=== PATIENT | female | born 1945 | race Caucasian/White ===

== ENCOUNTER 2016-10-24 14:52 | Inpatient (IN) ==
--- OUTSIDE RECORDS SUMMARY | 2016-10-24 15:13 | External Medical Summary | Continuity of Care Document ---
:[address] [facility] Allergies Medications Problems Date Dx Coded Attending Type Code Diagnosis Diagnosed By 04/24/2014 Fernando PINEDA, Maurilio Dangelo [address] [employer] NEC Procedures Results Test Result Range ARTERIAL BLOOD GAS - 04/24/14 13:38 ABG BASE EXCESS 12.5 meq/L -3.0-3.0 ABG DEVICE NC ABG BICARBONATE 40.0 meq/L 23.0-28.0 ABG PCO2 67 mm Hg 34-45 ABG PH 7.40 7.35-7.45 ABG PO2 61 mm Hg 75-100 ABG VENT RATE 2 ABG O2 SATURATION 92 % 93-100 ABG SITE LT RADIAL Encounters ACCT Visit Discharge Status Pt. Type Provider Facility Loc./Unit Complaint No. Date/Time [id number] 04/24/2014 04/24/2014 DIS Outpatient Fernando Menchaca [id number] 13:28:00 13:28:00 , Maurilio Duffy [facility]
--- OUTSIDE RECORDS SUMMARY | 2016-10-24 16:19 | External Medical Summary | Continuity of Care Document ---
:1945 Author Organization [facility] Allergies Medications Problems Date Dx Coded Attending [...] Type Provider Facility Loc./Unit Complaint No. Date/Time [id number] 04/24/2014 04/24/2014 DIS Outpatient Fernando Menchaca [id number] 13:28:00 13:28:00 , Maurilio Duffy [facility]
[2016-10-24] MEDS ORDERED: LORazepam 0.5 MG TABLET PO PRN ×3 (17:45→18:14)
[2016-10-24] MEDS ORDERED: HALOPERIDOL 5 MG/ML INJECTION IM PRN (17:45)
[2016-10-24] MEDS ORDERED: HALOPERIDOL 0.5 MG TABLET PO PRN (17:45)
[2016-10-24] MEDS ORDERED: MENTHOL COUGH DROPS (RICOLA) MM PRN (18:14)
[2016-10-24] MEDS ORDERED: LOPERAMIDE 2 MG CAPSULE PO PRN (18:14)
[2016-10-24] MEDS: DULOXETINE 30 MG CAPSULE PO SCH (21:40)
[2016-10-24] MEDS: ClonazePAM 0.5 MG TABLET PO SCH (21:40)
[2016-10-24] MEDS: ATORVASTATIN 20 MG TABLET PO SCH (21:40)
[2016-10-24] MEDS: AMANTADINE 100 MG CAPSULE PO SCH (21:40)
[2016-10-24] MEDS: BUMETANIDE 1 MG TABLET PO SCH (22:41)
[2016-10-24] MEDS: TAMSULOSIN 0.4 MG CAPSULE PO SCH (22:42)
[2016-10-24] MEDS: ACETAMINOPHEN 325 MG TABLET PO PRN (22:49)
[2016-10-25] MEDS: ISOSORBIDE MONONITRATE ER 60 MG TABLET PO SCH ×2 (05:57→17:13)
[2016-10-25] MEDS: DICYCLOMINE 10mg CAPSULE PO SCH ×3 (05:57→17:13)
[2016-10-25] MEDS: LACTAID FAST TABLET PO SCH ×3 (08:01→17:13)
[2016-10-25] MEDS: DULOXETINE 30 MG CAPSULE PO SCH (08:01)
[2016-10-25] MEDS: LORATADINE 10 MG TABLET PO SCH (08:01)
[2016-10-25] MEDS: BUMETANIDE 1 MG TABLET PO SCH ×2 (08:01→17:13)
[2016-10-25] MEDS: AMANTADINE 100 MG CAPSULE PO SCH ×2 (08:03→21:19)
[2016-10-25] MEDS: ClonazePAM 0.5 MG TABLET PO SCH ×3 (08:03→21:19)
[2016-10-25] MEDS ORDERED: LOSARTAN 100 MG TABLET PO SCH (09:00)
[2016-10-25] MEDS: LOSARTAN 100 MG TABLET PO SCH (10:21)
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
--- NOTE | 2016-10-25 16:10 | History & Physical Report ---
<Keri Vazquez - Last Filed: 10/25/16 15:53> History of Present Illness Date: 10/25/16 Chief complaint: schizoaffective disorder, suicidal ideation HPI: Kaila Stevenson is a 71-year-old female who is a assisted resident at [facility]. She has a known history of anxiety and schizophrenia and known diastolic heart failure, chronic respiratory failure related to COPD and LYLE. It was reported that on 10/23, she approached staff at the facility and asked them to wrap up her wrists. Upon further evaluation of her wrists, it was noted that she had multiple superficial linear abrasions. It was then that she admitted to having suicidal ideations for the past 3-4 days and tried to commit suicide by cutting her wrists with a soda bottle cap on 10/22. She states that she is depressed and that the "pain of living" was too much to bear. She cannot identify any particular stressor and admits to having thoughts of harming herself since last month. In addition to cutting her wrists, she also tried to harm herself by not wearing her oxygen, but got very tired and put her oxygen on to sleep. She has a history of prior suidice attempts with the most recent being 3 years ago when she tried to hang herself but was unable to complete it. She was was brought by EMS to [facility] on 10/23 for further evaluation and psychiatric evaluation. Labs were obtained and revealed thrombocytopenia with platelets at 76 and mild hypokalemia with potassium at 3.5. Due to the severity of her attempts, she was accepted to [facility] unit for further evaluation and psychiatric treatment. The hospitalist service was consulted for medical management. On exam, she is seen while sitting in the day room. She has a pleasant and cheerful disposition and is cooperative on exam. Is is a bit evasive with questions pertaining to events prior to her admission and just states that she is "better now". She denies any current SI or HI. No recent illness, fevers, chills, chest pain, increased shortness of breath, abdominal pain, nausea, vomiting or dysuria. She admits to chronic incontinence. Review of Systems All systems: reviewed and no additional remarkable complaints except as stated - Constitutional Constitutional: Absent: anorexia, chills, fatigue, fever(s), weakness - EENMT Eyes: Absent: blurry vision, change in vision, diplopia Nose: Present: allergies Mouth/Throat: Absent: sore throat - Cardiovascular Cardiovascular: Present: dyspnea on exertion, orthopnea. Absent: chest pain, palpitations, syncope Vascular: Present: pedal edema - Respiratory Respiratory: Present: dyspnea, dyspnea on exertion. Absent: cough, wheezing - Gastrointestinal Gastrointestinal: Absent: abdominal pain, change in bowel habits, diarrhea, nausea, vomiting - Genitourinary Genitourinary: Absent: dysuria, hematuria - Musculoskeletal Musculoskeletal: Absent: back pain, deformity - Integumentary/Breasts Integumentary: Present: other (linear abrasions to wrists.). Absent: rash, swelling - Neurological Neurological: Absent: convulsions, dizziness, focal weakness, tremor(s) - Psychiatric Psychiatric: Present: as per HPI, abnormal sleep pattern, anxiety, behavioral changes, depression, difficulty concentrating, hallucinations, hopelessness, mood swings, paranoia, suicidal ideation - Endocrine Endocrine: Absent: polyphagia, polyuria - Allergic/Immunologic Allergic/Immunologic: Present: seasonal rhinorrhea PFSH Patient Stated Medical History Coronary Artery Disease Yes Hypertension Yes Myocardial Infarction Yes Chronic Obstructive Pulmonary Yes Disease (COPD) Sleep Apnea Yes Diabetes Mellitus Type 2 Yes Other GI Yes: IBS Hx Incontinence Yes Schizophrenia Yes Other Reproductive Yes: hysterectomy Surgical History: CABG, CARPAL TUNNEL DECOMPRESSION, HYSTERECTOMY Family History Updates: Denies psychiatric history of depression, suicide attempts or suicide with family. - Social History Smoking status: Former smoker Quit date: 05/15/96 Substance use type: does not use Alcohol intake frequency: does not drink Housing: assisted [facility] Medications Home Medications Medication Instructions Recorded Confirmed Type Amantadine HCl [Amantadine] 100 mg PO BID 10/24/16 10/24/16 History Atorvastatin Calcium 20 mg PO HS 10/24/16 10/24/16 History Bumetanide Tab [Bumex] 2 mg PO TID 10/24/16 10/24/16 History ClonazePAM [Klonopin] 0.5 mg PO TID 10/24/16 10/24/16 History Dicyclomine HCl 10 mg PO TID 10/24/16 10/24/16 History Duloxetine HCl 30 mg PO BID 10/24/16 10/24/16 History Elma 7 mg PO Q2H PRN 10/24/16 10/24/16 History Isosorbide Mononitrate ER [Imdur] 60 mg PO BID 10/24/16 10/24/16 History LORazepam [Ativan] 0.5 mg PO DAILY PRN 10/24/16 10/24/16 History LORazepam [Ativan] 0.5 mg PO Q4H PRN 10/24/16 10/24/16 History Lactase [Dairy Relief] 3,000 unit PO 10/24/16 History Loperamide HCl [Loperamide] 2 mg PO 10/24/16 History Loratadine [Claritin] 10 mg PO DAILY 10/24/16 10/24/16 History Losartan [Cozaar] 100 mg PO DAILY 10/24/16 10/24/16 History Potassium Chloride [Klor-Con] 20 meq 10/24/16 History RisperiDONE LA [RisperDAL Consta] 50 mg IM Q2WKS 10/24/16 10/24/16 History Tamsulosin HCl 0.4 mg PO HS 10/24/16 10/24/16 History Acetaminophen [Acetaminophen Extra 1,000 mg PO Q4H PRN 10/25/16 10/25/16 History Strength] Baclofen [Lioresal] 5 mg PO Q8H PRN 10/25/16 10/25/16 History Melatonin/Pyridoxine HCl (B6) 6 mg PO HS PRN 10/25/16 10/25/16 History [Melatonin 3 mg Tablet] Nitroglycerin 0.4 mg SL 10/25/16 History Ondansetron [Zofran Odt] 4 mg PO Q6HR PRN 10/25/16 10/25/16 History Pseudoephedrine HCl [Sudafed] 30 mg PO BID PRN 10/25/16 10/25/16 History Simethicone [Mylicon] 80 mg PO PRN PRN 10/25/16 10/25/16 History Sodium Chloride [Saline Nasal Mist] 2 spray NS PRN PRN 10/25/16 10/25/16 History Allergies Allergy/AdvReac Type Severity Reaction Status Date / Time codeine Allergy Verified 10/24/16 16:27 cortisone Allergy Verified 10/24/16 16:27 Exam Vital Signs: Temp Pulse Resp BP Pulse Ox 97.0 F 88 18 122/65 93 10/25/16 08:00 06/13/17 10:21 10/25/16 08:00 10/25/16 10:21 10/25/16 08:00 Height: 5 ft 5 in Weight: 136.2 kg Body Mass Index: 49.9 - Constitutional Present: no acute distress, well nourished, well developed, morbidly obese, cooperative - Routine HEENT Exam Head: Present: normocephalic, atraumatic Eye: Present: PERRL. Absent: conjunctival icterus, scleral injection ENT: Present: mucous membranes moist - Routine Neck Exam Present: supple, full ROM, trachea midline - Routine Chest/Breast/Axilla Exam Chest wall: Absent: tenderness - Routine Respiratory Exam Present: decreased breath sounds, CTA bilaterally. Absent: accessory muscle use - Routine Cardiovascular Exam Present: RRR, S1, S2 - Routine Abdominal Exam Present: soft, normoactive bowel sounds, non distended, non tender. Absent: rebound, guarding - Routine Extremities Exam Present: edema (trace). Absent: cyanosis Comments: wheelchair bound - Routine Back/Spine/Pelvis Exam Back/Spine: Absent: CVA tenderness - Routine Skin Exam Present: dry, warm, wounds (abrasions to wrist). Absent: erythema - Routine Neurological Exam Present: alert, oriented X3, vision grossly intact, normal speech. Absent: facial asymmetry - Routine Psychiatric Exam Present: normal affect, normal thought process, cooperative. Absent: suicidal ideation, homicidal ideation, auditory hallucinations, visual hallucinations, tactile hallucinations Assessment and Plan (1) Schizophrenia Current visit: Yes Status: Acute (2) Generalized anxiety disorder Current visit: Yes Status: Chronic (3) COPD (chronic obstructive pulmonary disease) Current visit: Yes Status: Chronic (4) Diastolic heart failure Current visit: Yes Status: Chronic (5) CAD (coronary artery disease) Current visit: Yes Status: Chronic (6) Hypertension Current visit: Yes Status: Chronic (7) Diabetes Current visit: Yes Status: Chronic (8) IBS (irritable bowel syndrome) Current visit: Yes Status: Chronic (9) Hyperlipidemia Current visit: Yes Status: Chronic (10) Morbid obesity with BMI of 50.0-59.9, adult Current visit: Yes Status: Chronic (11) Urge urinary incontinence Current visit: Yes Status: Chronic (12) Oxygen dependent Current visit: Yes Status: Acute Assessment and Plan: . Schizophrenia with behavioral disturbance. * Agree with admission to [facility] for psychiatric evaluation and treatment. * Provide safe and supportive environment and encourage participation in floor activities. * Obtain admission work up including lipid panel, A1c, etc. Results pending. . NAEL. * Ativan and Cymbalta as directed by [facility] team. . COPD with oxygen dependence. * Continuous oxygen at 2-3L to maintain SAO2 >90%. . Diastolic heart failure. * Monitor closely for fluid overload. * Continue home bumex. . Hypertension and CAD with history of prior MT. * Continue home medications including Losartan. * Monitor blood pressure closely. . DM Type 2. * Check A1c as part of admission workup. Results pending. * Carb controlled diet. * Monitor blood sugars in AM and HS. . IBS. * Continue home Bentyl. . Hyperlipidemia. * Continue home atorvastatin. . Morbid obesity. . Urge urinary incontinence. Upon discharge, patient's care will be returned to her PCP. Sepsis Assessment - Evaluation Sepsis screening result: No Definite Risk - Focused Exam Vital Signs Temp Pulse Resp BP Pulse Ox 10/25/16 10:21 88 122/65 10/25/16 08:00 97.0 F 88 18 122/65 93 Hospital Course Summary Disclaimer: The visit summary below is not to be considered part of the above Progress Note. Hospital Course: 10/25/16 16:26 . Schizophrenia with behavioral disturbance. * Agree with admission to [facility] for psychiatric evaluation and treatment. * Provide safe and supportive environment and encourage participation in floor activities. * Obtain admission work up including lipid panel, A1c, etc. Results pending. . NAEL. * Ativan and Cymbalta as directed by [facility] team. . COPD with oxygen dependence. * Continuous oxygen at 2-3L to maintain SAO2 >90%. . Diastolic heart failure. * Monitor closely for fluid overload. * Continue home bumex. . Hypertension and CAD with history of prior MT. * Continue home medications including Losartan. * Monitor blood pressure closely. . DM Type 2. * Check A1c as part of admission workup. Results pending. * Carb controlled diet. * Monitor blood sugars in AM and HS. . IBS. * Continue home Bentyl. . Hyperlipidemia. * Continue home atorvastatin. . Morbid obesity. . Urge urinary incontinence. Upon discharge, patient's care will be returned to her PCP. <Muriel Cheng - Last Filed: 10/25/16 20:27> History of Present Illness Date: 10/25/16 [facility] Patient Stated Medical History Coronary Artery Disease Yes Hypertension Yes Myocardial Infarction Yes Chronic Obstructive Pulmonary Yes Disease (COPD) Sleep Apnea Yes Diabetes Mellitus Type 2 Yes Other GI Yes: IBS Hx Incontinence Yes Schizophrenia Yes Other Reproductive Yes: hysterectomy Exam Vital Signs: Temp Pulse Resp BP Pulse Ox 97.0 F 79 18 115/65 96 10/25/16 16:00 10/25/16 16:00 10/25/16 16:00 10/25/16 16:00 10/25/16 16:00 Height: 1.65 m Weight: 136.2 kg Assessment and Plan (1) Schizophrenia Current visit: Yes Status: Acute (2) Generalized anxiety disorder Current visit: Yes Status: Chronic (3) COPD (chronic obstructive pulmonary disease) Current visit: Yes Status: Chronic (4) Diastolic heart failure Current visit: Yes Status: Chronic (5) CAD (coronary artery disease) Current visit: Yes Status: Chronic (6) Hypertension Current visit: Yes Status: Chronic (7) Diabetes Current visit: Yes Status: Chronic (8) IBS (irritable bowel syndrome) Current visit: Yes Status: Chronic (9) Hyperlipidemia Current visit: Yes Status: Chronic (10) Morbid obesity with BMI of 50.0-59.9, adult Current visit: Yes Status: Chronic (11) Urge urinary incontinence Current visit: Yes Status: Chronic (12) Oxygen dependent Current visit: Yes Status: Acute (13) Thrombocytopenia Current visit: Yes Status: Chronic 10/25/16 20:23 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 Unknown recent baseline. Recheck CBC in the next 1-2 days. Assessment and Plan: 10/25/2016-I reviewed this chart, the patient history, and the QUART[employer] MOUNTER's/PA's documented findings as above. We discussed and formulated the assessment and plan as above with the additions below.-Dr. Cheng I saw the patient independently of my physician assistant professor of music. The patient was seen in the day room accompanied by her daughter. The patient states she is feeling okay. She currently denies any shortness of breath. She is on chronic O2 at 2-3 L per nasal cannula. She states she does not use inhalers or nebulizer medication because it makes her cough. She states she does not take aspirin for coronary artery disease because of a history of thrombocytopenia which was autoimmune in nature. Current platelets are 76. She denies any bleeding difficulties. The patient had some right upper back pain earlier today but it is gone now. She has chronic left knee pain from osteoarthritis. She denies any chest pain or abdominal pain. She denies headache. She denies any nausea or vomiting. She denies any urinary problems. On exam she is alert and in no acute distress. HEENT reveals sclerae to be anicteric and pupils are equal. Oropharynx is moist. Neck is supple. Chest is clear to auscultation. Cardiovascular reveals a regular rate and rhythm. Abdomen is soft, obese, nontender and nondistended with positive bowel sounds. Extremities reveal +1-2 bilateral pedal edema which the patient states is at baseline. The patient denies history of diabetes. Continue with current medications. Check CBC in the next 1-2 days. Sepsis Assessment - Focused Exam Vital Signs Temp Pulse Resp BP Pulse Ox 10/25/16 16:00 97.0 F 79 18 115/65 96 10/25/16 10:21 88 122/65 Hospital Course Summary Disclaimer: The visit summary below is not to be considered part of the above Progress Note.
[2016-10-25] MEDS: ATORVASTATIN 20 MG TABLET PO SCH (21:19)
[2016-10-25] MEDS: DULOXETINE 60 MG CAPSULE PO SCH (21:19)
[2016-10-25] MEDS: TAMSULOSIN 0.4 MG CAPSULE PO SCH (21:20)
[2016-10-26] MEDS: ISOSORBIDE MONONITRATE ER 60 MG TABLET PO SCH ×2 (06:21→17:23)
[2016-10-26] MEDS: DICYCLOMINE 10mg CAPSULE PO SCH ×3 (06:22→17:23)
[2016-10-26] MEDS: ClonazePAM 0.5 MG TABLET PO SCH ×3 (09:07→21:36)
[2016-10-26] MEDS: LACTAID FAST TABLET PO SCH ×3 (09:07→17:22)
[2016-10-26] MEDS: AMANTADINE 100 MG CAPSULE PO SCH ×2 (09:07→21:36)
[2016-10-26] MEDS: BUMETANIDE 1 MG TABLET PO SCH ×3 (09:07→15:42)
[2016-10-26] MEDS: DULOXETINE 60 MG CAPSULE PO SCH ×2 (09:07→21:36)
[2016-10-26] MEDS: LORATADINE 10 MG TABLET PO SCH (09:07)
[2016-10-26] MEDS: LOSARTAN 100 MG TABLET PO SCH (09:08)
[2016-10-26] MEDS: CYANOCOBALAMIN (B-12) 500mcg TABLET PO SCH (12:36)
[2016-10-26] MEDS: ATORVASTATIN 20 MG TABLET PO SCH (21:36)
[2016-10-26] MEDS: TAMSULOSIN 0.4 MG CAPSULE PO SCH (21:38)
--- NOTE | 2016-10-26 22:10 | Neuropsych Progress Note ---
[facility] Subjective Date: 10/27/16 - Sujective/Severity of Illness Medications: Acetaminophen (Tylenol) 325 - 650 mg PO Q5H PRN PRN Reason: Discomfort Last Admin: 10/24/16 22:49 Dose: 650 mg Amantadine HCl (Symmetrel) 100 mg PO BID [facility] Last Admin: 10/26/16 21:36 Dose: 100 mg Atorvastatin Calcium (Lipitor) 20 mg PO HS [facility] Last Admin: 10/26/16 21:36 Dose: 20 mg Bumetanide (Bumex) 2 mg PO 0800,1200,1600 [facility] Last Admin: 10/26/16 15:42 Dose: 2 mg Clonazepam (Klonopin) 0.5 mg PO TID [facility] Last Admin: 10/26/16 21:36 Dose: 0.5 mg Cyanocobalamin (Vit B-12) 1,000 mcg PO DAILY [facility] Last Admin: 10/26/16 12:36 Dose: 1,000 mcg Dicyclomine HCl (Bentyl) 10 mg PO AC [facility] Last Admin: 10/26/16 17:23 Dose: 10 mg Duloxetine HCl (Cymbalta) 60 mg PO BID [facility] Last Admin: 10/26/16 21:36 Dose: 60 mg Haloperidol (Haldol) 0.5 mg PO Q6H PRN PRN Reason: Extreme agitation Haloperidol Lactate (Haldol) 0.5 mg IM Q6H PRN PRN Reason: Extreme agitation Isosorbide Mononitrate (Imdur) 60 mg PO ACBID [facility] Last Admin: 10/26/16 17:23 Dose: 60 mg Lactase (Lactaid Fast Act) 1 tab PO WM [facility] Last Admin: 10/26/16 17:22 Dose: 1 tab Loperamide HCl (Imodium) 2 mg PO Q4H PRN PRN Reason: Protocol Loratadine (Claritin) 10 mg PO DAILY [facility] Last Admin: 10/26/16 09:07 Dose: 10 mg Lorazepam (Ativan) 0.5 mg PO Q6H PRN PRN Reason: Extreme agitation Lorazepam (Ativan Inj) 0.5 mg IM Q6H PRN PRN Reason: Extreme agitation Lorazepam (Ativan) 0.5 mg PO Q4H PRN PRN Reason: Anxiety Losartan Potassium (Cozaar) 100 mg PO DAILY [facility] Menthol (Ricola Sf) 1 lozenge MM Q2H PRN PRN Reason: Cough Potassium Chloride (K-Dur) 20 meq PO BIDWM [facility] Last Admin: 10/26/16 17:23 Dose: 20 meq Risperidone (Risperdal Consta) 50 mg IM Q2WKS [facility] Tamsulosin HCl (Flomax) 0.4 mg PO HS [facility] Last Admin: 10/26/16 21:38 Dose: Not Given Subjective: Patient seen and chart reviewed. Case discussed with treatment team. On interview, patient in dayroom with staff/peers and is very pleasant on interview. She reports that her mood is "good" and denies any SI since Monday. She thinks "opening up, talking and sharing" has been helpful in this regard. She does complain of some back pain and we discussed how increased dose of Cymbalta may help with this. Patient denies HI or AVH. Patient denies any adverse side effects related to psychotropic medications. Nursing staff report patient has been pleasant/cooperative, social and interacting well with others on the unit. Patient slept 7.75 hours overnight. VSS. Patient is eating well. Psychotropic PRNs required in the past 24 hours: none. Start Time: 18:00 Stop Time: 18:20 Mental Status Exam Vitals: Last Vital Signs Temp 97.2 F 10/26/16 20:50 Pulse 87 10/26/16 20:50 Resp 18 10/26/16 20:50 BP 141/74 H 10/26/16 20:50 Pulse Ox 2 L 10/26/16 21:18 Height: 1.65 m Weight: 136.2 kg - Mental Status Exam Muscle Strength/Tone: Normal Dressing: Casual Grooming: Fair Attitude: Cooperative Motor Activity: Normal Eye Contact: Fair Speech: Slowed Volume: Soft Rhythm: Appropriate Rhythm Orientation: Oriented X4 Mood: Other (improved from admission, neutral) Rate of Thoughts: Appropriate Rate, Delayed Thought Organization: Organized Associations: Intact Thought Content: Ruminations, Helplessness, Worthlessness, Somatic Concerns Perception/Psychotic: Hx psychosis, not current Language: Naming Intact Fund of Knowledge: Basil aware current events Memory: Grossly Intact Suicidal Ideation: Intermittent Homicidal Ideation: Denies Insight: Limited Judgement: Limited Impulse Control: Poor - Laboratory Result Diagrams: 10/26/16 04:48 10/26/16 04:48 Laboratory Results - last 24 hr 10/24/16 10/26/16 10/26/16 18:43 04:48 04:48 WBC 6.5 RBC 4.46 Hgb 12.3 Hct 39.6 MCV 88.8 MCH 27.6 MCHC 31.1 RDW Std Deviation 45.4 Plt Count 88 L MPV 11.8 Immature Gran % (Auto) 0.5 Neut % (Auto) 74.0 H Lymph % (Auto) 18.6 L [place] % (Auto) 5.2 Eos % (Auto) 1.4 Baso % (Auto) 0.3 Neut # 4.8 Lymph # 1.2 [place] # 0.3 Eos # 0.1 Baso # 0.0 Abs Immat Gran (auto) 0.03 Turbidity < 20 Sodium 148 H Potassium 4.2 Chloride 98 Carbon Dioxide 34 H Anion Gap 16 H BUN 14.0 Creatinine 0.8 GFR Calculation 71 BUN/Creatinine Ratio 18 Glucose 107 Calculated Osmolality 285 H Calcium 9.7 Icterus Index < 2 Specimen Hemolysis 35 H Ur Collection Type Urine Color Urine Clarity Urine pH Ur Specific [place] Urine Protein Urine Glucose (UA) Urine Ketones Urine Occult Blood Urine Nitrate Urine Bilirubin Urine Urobilinogen Ur Leukocyte Esterase Urinalysis Comment RPR Non-reactive 10/26/16 11:25 WBC RBC Hgb Hct MCV MCH MCHC RDW Std Deviation Plt Count MPV Immature Gran % (Auto) Neut % (Auto) Lymph % (Auto) [place] % (Auto) Eos % (Auto) Baso % (Auto) Neut # Lymph # [place] # Eos # Baso # Abs Immat Gran (auto) Turbidity Sodium Potassium Chloride Carbon Dioxide Anion Gap BUN Creatinine GFR Calculation BUN/Creatinine Ratio Glucose Calculated Osmolality Calcium Icterus Index Specimen Hemolysis Ur Collection Type Urine, clean catch Urine Color Yellow Urine Clarity Clear Urine pH 6.0 Ur Specific [place] <=1.005 L Urine Protein Negative Urine Glucose (UA) Negative Urine Ketones Negative Urine Occult Blood Negative Urine Nitrate Negative Urine Bilirubin Negative Urine Urobilinogen 0.2 Ur Leukocyte Esterase Negative Urinalysis Comment Microscopic not ind. RPR Assessment and Plan (1) Schizophrenia Problem details: by history Current visit: Yes Status: Chronic (2) Generalized anxiety disorder Problem details: by history Current visit: Yes Status: Chronic (3) Oxygen dependent Current visit: Yes Status: Acute (4) COPD (chronic obstructive pulmonary disease) Current visit: Yes Status: Chronic (5) Diabetes Current visit: Yes Status: Chronic (6) Diastolic heart failure Current visit: Yes Status: Chronic (7) Hyperlipidemia Current visit: Yes Status: Chronic (8) Hypertension Current visit: Yes Status: Chronic (9) Morbid obesity with BMI of 50.0-59.9, adult Current visit: Yes Status: Chronic (10) Thrombocytopenia Current visit: Yes Status: Chronic (11) Urge urinary incontinence Current visit: Yes Status: Chronic Continue current medications - Risperdal 50mg IM given day of admission, Cymbalta increased to a total of 120mg daily which will help with pain control. Focus on developing coping skills, building distress tolerance. Continue to monitor patient's mood, behavior and response to treatment.
[2016-10-27] MEDS: ISOSORBIDE MONONITRATE ER 60 MG TABLET PO SCH ×2 (06:46→17:05)
[2016-10-27] MEDS: DICYCLOMINE 10mg CAPSULE PO SCH ×3 (06:46→17:05)
[2016-10-27] MEDS: BUMETANIDE 1 MG TABLET PO SCH ×3 (09:20→15:39)
[2016-10-27] MEDS: LORATADINE 10 MG TABLET PO SCH (09:21)
[2016-10-27] MEDS: DULOXETINE 60 MG CAPSULE PO SCH ×2 (09:22→20:39)
[2016-10-27] MEDS: ClonazePAM 0.5 MG TABLET PO SCH ×3 (09:22→20:40)
[2016-10-27] MEDS: AMANTADINE 100 MG CAPSULE PO SCH ×2 (09:22→20:40)
[2016-10-27] MEDS: CYANOCOBALAMIN (B-12) 500mcg TABLET PO SCH (09:23)
[2016-10-27] MEDS: LACTAID FAST TABLET PO SCH ×3 (09:24→17:05)
[2016-10-27] MEDS: LOSARTAN 100 MG TABLET PO SCH (09:24)
[2016-10-27] MEDS: ACETAMINOPHEN 325 MG TABLET PO PRN (18:22)
[2016-10-27] MEDS: TAMSULOSIN 0.4 MG CAPSULE PO SCH (21:32)
[2016-10-27] MEDS: ATORVASTATIN 20 MG TABLET PO SCH (21:32)
--- NOTE | 2016-10-27 21:44 | Neuropsych Progress Note ---
[facility] Subjective Date: 10/27/16 - Sujective/Severity of Illness Medications: Acetaminophen (Tylenol) 325 - 650 mg PO Q5H PRN PRN Reason: Discomfort Last Admin: 10/27/16 18:22 Dose: 650 mg Amantadine HCl (Symmetrel) 100 mg PO BID [facility] Last Admin: 10/27/16 20:40 Dose: 100 mg Atorvastatin Calcium (Lipitor) 20 mg PO HS [facility] Last Admin: 10/27/16 21:32 Dose: 20 mg Bumetanide (Bumex) 2 mg PO 0800,1200,1600 [facility] Last Admin: 10/27/16 15:39 Dose: 2 mg Clonazepam (Klonopin) 0.5 mg PO TID [facility] Last Admin: 10/27/16 20:40 Dose: 0.5 mg Cyanocobalamin (Vit B-12) 1,000 mcg PO DAILY [facility] Last Admin: 10/27/16 09:23 Dose: 1,000 mcg Dicyclomine HCl (Bentyl) 10 mg PO AC [facility] Last Admin: 10/27/16 17:05 Dose: 10 mg Duloxetine HCl (Cymbalta) 60 mg PO BID [facility] Last Admin: 10/27/16 20:39 Dose: 60 mg Haloperidol (Haldol) 0.5 mg PO Q6H PRN PRN Reason: Extreme agitation Haloperidol Lactate (Haldol) 0.5 mg IM Q6H PRN PRN Reason: Extreme agitation Isosorbide Mononitrate (Imdur) 60 mg PO ACBID [facility] Last Admin: 10/27/16 17:05 Dose: 60 mg Lactase (Lactaid Fast Act) 1 tab PO WM [facility] Last Admin: 10/27/16 17:05 Dose: 1 tab Loperamide HCl (Imodium) 2 mg PO Q4H PRN PRN Reason: Protocol Loratadine (Claritin) 10 mg PO DAILY [facility] Last Admin: 10/27/16 09:21 Dose: 10 mg Lorazepam (Ativan) 0.5 mg PO Q6H PRN PRN Reason: Extreme agitation Lorazepam (Ativan Inj) 0.5 mg IM Q6H PRN PRN Reason: Extreme agitation Lorazepam (Ativan) 0.5 mg PO Q4H PRN PRN Reason: Anxiety Losartan Potassium (Cozaar) 100 mg PO DAILY [facility] Last Admin: 10/27/16 09:24 Dose: 100 mg Menthol (Ricola Sf) 1 lozenge MM Q2H PRN PRN Reason: Cough Potassium Chloride (K-Dur) 20 meq PO BIDWM [facility] Last Admin: 10/27/16 17:05 Dose: 20 meq Risperidone (Risperdal Consta) 50 mg IM Q2WKS [facility] Tamsulosin HCl (Flomax) 0.4 mg PO HS [facility] Last Admin: 10/27/16 21:32 Dose: Not Given Subjective: Patient seen and chart reviewed. Case discussed with treatment team. On interview, patient is pleasant and cooperative, reports mood significantly improved since admission. Finds groups, talking with staff helpful and is interested in therapy after discharge. Patient denies any SI, HI or AVH. Patient denies any adverse side effects related to psychotropic medications. Does complain of back pain and takes PRN acetaminophen. Nursing staff report patient has been pleasant/cooperative, interacts well with others with no behavioral difficulties. Patient slept well overnight. VSS. Patient is eating well. Psychotropic PRNs required in the past 24 hours: none. Start Time: 17:40 Stop Time: 18:00 Mental Status Exam Vitals: Last Vital Signs Temp 97.2 F 10/27/16 20:11 Pulse 91 10/27/16 20:11 Resp 18 10/27/16 20:11 BP 103/57 10/27/16 20:11 Pulse Ox 96 10/27/16 20:11 Height: 1.65 m Weight: 136.2 kg - Mental Status Exam Muscle Strength/Tone: Normal Dressing: Casual Grooming: Fair Attitude: Cooperative Motor Activity: Normal Eye Contact: Fair Speech: Slowed Volume: Soft Rhythm: Appropriate Rhythm Orientation: Oriented X4 Mood: Other (improved from admission, neutral) Rate of Thoughts: Appropriate Rate, Delayed Thought Organization: Organized Associations: Intact Thought Content: Ruminations, Helplessness, Worthlessness, Somatic Concerns Perception/Psychotic: Hx psychosis, not current Language: Naming Intact Fund of Knowledge: Basil aware current events Memory: Grossly Intact Suicidal Ideation: Intermittent Homicidal Ideation: Denies Insight: Limited Judgement: Limited Impulse Control: Poor - Laboratory Result Diagrams: 10/26/16 04:48 10/26/16 04:48 Laboratory Results - last 24 hr 10/25/16 06:37 Triglycerides 110 Cholesterol 177 LDL Cholesterol, Calc 121.0 VLDL Cholesterol 22.0 HDL Cholesterol 34 L Cholesterol/HDL Ratio 5.2 H Assessment and Plan (1) Schizophrenia Problem details: by history Current visit: Yes Status: Chronic (2) Generalized anxiety disorder Problem details: by history Current visit: Yes Status: Chronic (3) Oxygen dependent Current visit: Yes Status: Acute (4) COPD (chronic obstructive pulmonary disease) Current visit: Yes Status: Chronic (5) Diabetes Current visit: Yes Status: Chronic (6) Diastolic heart failure Current visit: Yes Status: Chronic (7) Hyperlipidemia Current visit: Yes Status: Chronic (8) Hypertension Current visit: Yes Status: Chronic (9) Morbid obesity with BMI of 50.0-59.9, adult Current visit: Yes Status: Chronic (10) Thrombocytopenia Current visit: Yes Status: Chronic (11) Urge urinary incontinence Current visit: Yes Status: Chronic Patient doing very well overall - look at how we can increase psychiatric services (such as therapy) after discharge as she seems to respond well to this and find it helpful.
[2016-10-28] MEDS: BUMETANIDE 1 MG TABLET PO SCH ×3 (08:29→15:25)
[2016-10-28] MEDS: LACTAID FAST TABLET PO SCH ×3 (08:30→17:19)
[2016-10-28] MEDS: ISOSORBIDE MONONITRATE ER 60 MG TABLET PO SCH ×2 (08:30→17:22)
[2016-10-28] MEDS: LORATADINE 10 MG TABLET PO SCH (08:31)
[2016-10-28] MEDS: DICYCLOMINE 10mg CAPSULE PO SCH ×3 (08:31→17:22)
[2016-10-28] MEDS: LOSARTAN 100 MG TABLET PO SCH (08:31)
[2016-10-28] MEDS: CYANOCOBALAMIN (B-12) 500mcg TABLET PO SCH (08:32)
[2016-10-28] MEDS: DULOXETINE 60 MG CAPSULE PO SCH ×2 (08:32→20:58)
[2016-10-28] MEDS: ClonazePAM 0.5 MG TABLET PO SCH ×3 (08:32→20:57)
[2016-10-28] MEDS: AMANTADINE 100 MG CAPSULE PO SCH ×2 (08:32→20:57)
--- NOTE | 2016-10-28 12:00 | Progress Note ---
Subjective: Kaila is doing well and she doesn't have any complaints. She has been breathing well, using bipap, as usual, HS. She manages for short periods without her oxygen (ie brushing teeth), but otherwise uses it routinely. Denies abdominal pain or GI complaints and has been eating well. Objective Vital signs: Temp Pulse Resp BP Pulse Ox 97.4 F 89 18 133/67 94 10/28/16 08:00 10/28/16 08:00 10/28/16 08:00 10/28/16 08:00 10/28/16 08:00 Body Mass Index: 49.9 - Constitutional Present: no acute distress, well nourished, well developed, morbidly obese, cooperative - Routine HEENT Exam Eye: Absent: conjunctival icterus ENT: Present: oropharynx clear - Routine Respiratory Exam Present: decreased breath sounds, CTA bilaterally - Routine Cardiovascular Exam Present: S1, S2 - Routine Abdominal Exam Present: soft, non tender - Routine Extremities Exam Present: edema (b/l 1-2+) - Routine Musculoskeletal Exam Musculoskeletal: no joint swelling - Routine Skin Exam Present: intact, dry, warm - Routine Neurological Exam Present: alert, oriented X3 - Routine Psychiatric Exam Present: normal affect, normal thought process Results - Labs CBC & Chem 7: 10/26/16 04:48 10/26/16 04:48 Assessment and Plan (1) Schizophrenia Problem details: by history Current visit: Yes Status: Chronic (2) Generalized anxiety disorder Problem details: by history Current visit: Yes Status: Chronic (3) COPD (chronic obstructive pulmonary disease) Current visit: Yes Status: Chronic (4) Diastolic heart failure Current visit: Yes Status: Chronic (5) CAD (coronary artery disease) Current visit: Yes Status: Chronic (6) Hypertension Current visit: Yes Status: Chronic (7) Diabetes Current visit: Yes Status: Chronic (8) IBS (irritable bowel syndrome) Current visit: Yes Status: Chronic (9) Hyperlipidemia Current visit: Yes Status: Chronic (10) Morbid obesity with BMI of 50.0-59.9, adult Current visit: Yes Status: Chronic (11) Urge urinary incontinence Current visit: Yes Status: Chronic (12) Oxygen dependent Current visit: Yes Status: Acute (13) Thrombocytopenia Current visit: Yes Status: Chronic 10/25/16 20:23 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 Unknown recent baseline. Recheck CBC in the next 1-2 days. Assessment and Plan: Hypernatremia -nursing staff were asked to encourage intake on 10/26/16 -recheck BMP today Thrombocytopenia -chronic -doesn't take ASA d/t thrombocytopenia -recheck CBC today COPD, O2 dependent -stable -cont BiPAP HS DM2 -pt denies hx -A1c was 5.6% -not on any meds CAD, HTN -stable Psych notes removed. Sepsis Assessment - Evaluation Sepsis screening result: No Definite Risk - Focused Exam Vital Signs Temp Pulse Resp BP Pulse Ox 10/28/16 08:00 97.4 F 89 18 133/67 94 Respiratory exam: Present: decreased breath sounds, CTA bilaterally. Absent: accessory muscle use Cardiovascular exam: Present: RRR, S1, S2 Capillary refill: < 2-3 Seconds Hospital Course Summary Disclaimer: The visit summary below is not to be considered part of the above Progress Note. Hospital Course: 10/25/16 16:26 . Schizophrenia with behavioral disturbance. * Agree with admission to [facility] unit for psychiatric evaluation and treatment. * Provide safe and supportive environment and encourage participation in floor activities. * Obtain admission work up including lipid panel, A1c, etc. Results pending. . NAEL. * Ativan and Cymbalta as directed by [facility] team. . COPD with oxygen dependence. * Continuous oxygen at 2-3L to maintain SAO2 >90%. . Diastolic heart failure. * Monitor closely for fluid overload. * Continue home bumex. . Hypertension and CAD with history of prior AL. * Continue home medications including Losartan. * Monitor blood pressure closely. . DM Type 2. * Check A1c as part of admission workup. Results pending. * Carb controlled diet. * Monitor blood sugars in AM and HS. . IBS. * Continue home Bentyl. . Hyperlipidemia. * Continue home atorvastatin. . Morbid obesity. . Urge urinary incontinence. Upon discharge, patient's care will be returned to her PCP. 10/28/16 12:10 Hypernatremia -nursing staff were asked to encourage intake on 10/26/16 -recheck BMP today Thrombocytopenia -chronic -doesn't take ASA d/t thrombocytopenia -recheck CBC today COPD, O2 dependent -stable -cont BiPAP HS DM2 -pt denies hx -A1c was 5.6% -not on any meds CAD, HTN -stable Psych notes removed.
[2016-10-28] MEDS: ACETAMINOPHEN 325 MG TABLET PO PRN ×2 (17:22→23:52)
[2016-10-28] MEDS: ATORVASTATIN 20 MG TABLET PO SCH (21:19)
--- NOTE | 2016-10-28 21:36 | Neuropsych Progress Note ---
[facility] Subjective Date: 10/29/16 - Sujective/Severity of Illness Medications: Acetaminophen (Tylenol) 325 - 650 mg PO Q5H PRN PRN Reason: Discomfort Last Admin: 10/28/16 17:22 Dose: 650 mg Amantadine HCl (Symmetrel) 100 mg PO BID [facility] Last Admin: 10/28/16 20:57 Dose: 100 mg Atorvastatin Calcium (Lipitor) 20 mg PO HS [facility] Last Admin: 10/28/16 21:19 Dose: 20 mg Bumetanide (Bumex) 2 mg PO 0800,1200,1600 [facility] Last Admin: 10/28/16 15:25 Dose: 2 mg Clonazepam (Klonopin) 0.5 mg PO TID [facility] Last Admin: 10/28/16 20:57 Dose: 0.5 mg Cyanocobalamin (Vit B-12) 1,000 mcg PO DAILY [facility] Last Admin: 10/28/16 08:32 Dose: 1,000 mcg Dicyclomine HCl (Bentyl) 10 mg PO AC [facility] Last Admin: 10/28/16 17:22 Dose: 10 mg Duloxetine HCl (Cymbalta) 60 mg PO BID [facility] Last Admin: 10/28/16 20:58 Dose: 60 mg Haloperidol (Haldol) 0.5 mg PO Q6H PRN PRN Reason: Extreme agitation Haloperidol Lactate (Haldol) 0.5 mg IM Q6H PRN PRN Reason: Extreme agitation Isosorbide Mononitrate (Imdur) 60 mg PO ACBID [facility] Last Admin: 10/28/16 17:22 Dose: 60 mg Lactase (Lactaid Fast Act) 1 tab PO WM [facility] Last Admin: 10/28/16 17:19 Dose: 1 tab Loperamide HCl (Imodium) 2 mg PO Q4H PRN PRN Reason: Protocol Loratadine (Claritin) 10 mg PO DAILY [facility] Last Admin: 10/28/16 08:31 Dose: 10 mg Lorazepam (Ativan) 0.5 mg PO Q6H PRN PRN Reason: Extreme agitation Lorazepam (Ativan Inj) 0.5 mg IM Q6H PRN PRN Reason: Extreme agitation Lorazepam (Ativan) 0.5 mg PO Q4H PRN PRN Reason: Anxiety Losartan Potassium (Cozaar) 100 mg PO DAILY [facility] Last Admin: 10/28/16 08:31 Dose: 100 mg Menthol (Ricola Sf) 1 lozenge MM Q2H PRN PRN Reason: Cough Potassium Chloride (K-Dur) 20 meq PO BIDWM [facility] Last Admin: 10/28/16 17:24 Dose: 20 meq Risperidone (Risperdal Consta) 50 mg IM Q2WKS [facility] Tamsulosin HCl (Flomax) 0.4 mg PO HS [facility] Last Admin: 10/27/16 21:32 Dose: Not Given Subjective: Patient seen and chart reviewed. Case discussed with treatment team. On interview, patient is in room and tearful. She states she was journaling and it brought up bad memories - she feels that she is "not measuring up here" because she is spending time in her room. Patient seemed to want more 1:1 time to discuss her feelings/symptoms but was redirectable. Reassured her that some people need alone time and she has been doing well at socializing with others, spending time in day room, etc. and that she could hang out in her room tonight , which seemed to relieve her. Patient denies any SI, HI or AVH. Patient denies any adverse side effects related to psychotropic medications. Discussed interrupted/limited sleep with her - unclear whether related to BiPap use or increase in Cymbalta - patient says she has been diagnosed as bipolar in the past but seems to have a somewhat cyclical sleep cycle (sleeps more for 2 days then less for 2 days). Continue to monitor. Nursing staff report patient has been pleasant/cooperative overall with no behavioral difficulties. Patient slept only 3.25 hours overnight, interrupted. VSS. Patient is eating well. Psychotropic PRNs required in the past 24 hours: none. Start Time: 18:20 Stop Time: 18:40 Mental Status Exam Vitals: Last Vital Signs Temp 97.0 F 10/28/16 20:00 Pulse 80 10/28/16 20:00 Resp 20 10/28/16 20:00 BP 122/61 10/28/16 20:00 Pulse Ox 95 10/28/16 20:00 Height: 1.65 m Weight: 136.2 kg - Mental Status Exam Muscle Strength/Tone: Normal Dressing: Casual Grooming: Fair Attitude: Cooperative Motor Activity: Normal Eye Contact: Fair Speech: Slowed Volume: Soft Rhythm: Appropriate Rhythm Sensory: Alert Orientation: Oriented X4 Mood: Tearful Rate of Thoughts: Appropriate Rate, Delayed Thought Organization: Circumstantial Associations: Intact Abstract Reasoning: Poor abstract reasoning Thought Content: Ruminations, Helplessness, Worthlessness, Somatic Concerns Perception/Psychotic: Hx psychosis, not current Language: Naming Intact Fund of Knowledge: Basil aware current events Memory: Grossly Intact Suicidal Ideation: Intermittent Homicidal Ideation: Denies Insight: Limited Judgement: Limited Impulse Control: Poor - Laboratory Result Diagrams: 10/28/16 16:34 10/28/16 16:34 Laboratory Results - last 24 hr 10/28/16 10/28/16 16:34 16:34 WBC 6.6 RBC 4.42 Hgb 12.4 Hct 38.2 MCV 86.4 MCH 28.1 MCHC 32.5 RDW Std Deviation 42.7 Plt Count 106 L MPV 11.3 Immature Gran % (Auto) 0.5 Neut % (Auto) 67.5 H Lymph % (Auto) 23.8 [place] % (Auto) 5.9 Eos % (Auto) 1.8 Baso % (Auto) 0.5 Neut # 4.5 Lymph # 1.6 [place] # 0.4 Eos # 0.1 Baso # 0.0 Abs Immat Gran (auto) 0.03 Turbidity < 20 Sodium 144 Potassium 3.9 Chloride 94 L Carbon Dioxide 36 H Anion Gap 14 BUN 20.0 H Creatinine 0.9 GFR Calculation 62 BUN/Creatinine Ratio 22 Glucose 109 Calculated Osmolality 281 H Calcium 9.6 Icterus Index < 2 Specimen Hemolysis 51 H Assessment and Plan (1) Schizophrenia Problem details: by history Current visit: Yes Status: Chronic (2) Generalized anxiety disorder Problem details: by history Current visit: Yes Status: Chronic (3) Oxygen dependent Current visit: Yes Status: Acute (4) COPD (chronic obstructive pulmonary disease) Current visit: Yes Status: Chronic (5) Diabetes Current visit: Yes Status: Chronic (6) Diastolic heart failure Current visit: Yes Status: Chronic (7) Hyperlipidemia Current visit: Yes Status: Chronic (8) Hypertension Current visit: Yes Status: Chronic (9) Morbid obesity with BMI of 50.0-59.9, adult Current visit: Yes Status: Chronic (10) Thrombocytopenia Current visit: Yes Status: Chronic (11) Urge urinary incontinence Current visit: Yes Status: Chronic r/o schizoaffective disorder - monitor sleep as increased dose of Cymbalta may be contributing to insomnia. Patient asks about platelet counts - which have increased since previous labs - hospitalist following.
[2016-10-29] MEDS: TAMSULOSIN 0.4 MG CAPSULE PO SCH ×2 (00:41→22:05)
[2016-10-29] MEDS: BUMETANIDE 1 MG TABLET PO SCH ×3 (08:21→17:02)
[2016-10-29] MEDS: DICYCLOMINE 10mg CAPSULE PO SCH ×3 (08:21→17:02)
[2016-10-29] MEDS: LACTAID FAST TABLET PO SCH ×3 (08:21→17:02)
[2016-10-29] MEDS: ISOSORBIDE MONONITRATE ER 60 MG TABLET PO SCH ×2 (08:21→17:03)
[2016-10-29] MEDS: ClonazePAM 0.5 MG TABLET PO SCH ×3 (08:22→22:05)
[2016-10-29] MEDS: CYANOCOBALAMIN (B-12) 500mcg TABLET PO SCH (08:22)
[2016-10-29] MEDS: LORATADINE 10 MG TABLET PO SCH (08:22)
[2016-10-29] MEDS: DULOXETINE 60 MG CAPSULE PO SCH ×2 (08:22→22:05)
[2016-10-29] MEDS: LOSARTAN 100 MG TABLET PO SCH (08:22)
[2016-10-29] MEDS: AMANTADINE 100 MG CAPSULE PO SCH ×2 (08:22→22:05)
--- NOTE | 2016-10-29 15:48 | Neuropsych Progress Note ---
[facility] Subjective Date: 10/29/16 - Sujective/Severity of Illness Medications: Acetaminophen (Tylenol) 325 - 650 mg PO Q5H PRN PRN Reason: Discomfort Last Admin: 10/28/16 23:52 Dose: 650 mg Amantadine HCl (Symmetrel) 100 mg PO BID [facility] Last Admin: 10/29/16 08:22 Dose: 100 mg Atorvastatin Calcium (Lipitor) 20 mg PO HS [facility] Last Admin: 10/28/16 21:19 Dose: 20 mg Bumetanide (Bumex) 2 mg PO 0800,1200,1600 [facility] Last Admin: 10/29/16 12:06 Dose: 2 mg Clonazepam (Klonopin) 0.5 mg PO TID [facility] Last Admin: 10/29/16 08:22 Dose: 0.5 mg Cyanocobalamin (Vit B-12) 1,000 mcg PO DAILY [facility] Last Admin: 10/29/16 08:22 Dose: 1,000 mcg Dicyclomine HCl (Bentyl) 10 mg PO AC [facility] Last Admin: 10/29/16 12:06 Dose: 10 mg Duloxetine HCl (Cymbalta) 60 mg PO BID [facility] Last Admin: 10/29/16 08:22 Dose: 60 mg Haloperidol (Haldol) 0.5 mg PO Q6H PRN PRN Reason: Extreme agitation Haloperidol Lactate (Haldol) 0.5 mg IM Q6H PRN PRN Reason: Extreme agitation Isosorbide Mononitrate (Imdur) 60 mg PO ACBID [facility] Last Admin: 10/29/16 08:21 Dose: 60 mg Lactase (Lactaid Fast Act) 1 tab PO WM [facility] Last Admin: 10/29/16 12:06 Dose: 1 tab Loperamide HCl (Imodium) 2 mg PO Q4H PRN PRN Reason: Protocol Loratadine (Claritin) 10 mg PO DAILY [facility] Last Admin: 10/29/16 08:22 Dose: 10 mg Lorazepam (Ativan) 0.5 mg PO Q6H PRN PRN Reason: Extreme agitation Lorazepam (Ativan Inj) 0.5 mg IM Q6H PRN PRN Reason: Extreme agitation Lorazepam (Ativan) 0.5 mg PO Q4H PRN PRN Reason: Anxiety Losartan Potassium (Cozaar) 100 mg PO DAILY [facility] Last Admin: 10/29/16 08:22 Dose: 100 mg Menthol (Ricola Sf) 1 lozenge MM Q2H PRN PRN Reason: Cough Potassium Chloride (K-Dur) 20 meq PO BIDWM [facility] Last Admin: 10/29/16 08:21 Dose: 20 meq Risperidone (Risperdal Consta) 50 mg IM Q2WKS [facility] Tamsulosin HCl (Flomax) 0.4 mg PO HS [facility] Last Admin: 10/29/16 00:41 Dose: Not Given Subjective: Chart reviewed - patient sleeping during rounds and did not wake her as she slept ~5 hours last night (improvement from previous). Monitoring sleep d/t concern Cymbalta increase may have contributed to insomnia. Nursing staff report patient can be demanding at times but overall cooperative, no significant behavioral difficulties. VSS. Patient is eating well. Psychotropic PRNs required in the past 24 hours: none. Start Time: 13:20 Stop Time: 13:40 Mental Status Exam Vitals: Last Vital Signs Temp 97.8 F 10/29/16 08:00 Pulse 96 10/29/16 08:00 Resp 22 10/29/16 08:00 BP 119/58 10/29/16 08:00 Pulse Ox 94 10/29/16 08:00 Height: 1.65 m Weight: 136.2 kg - Mental Status Exam Muscle Strength/Tone: Normal Dressing: Casual Grooming: Fair Attitude: Cooperative Motor Activity: Normal Eye Contact: Fair Speech: Slowed Volume: Soft Rhythm: Appropriate Rhythm Orientation: Oriented X4 Mood: Tearful Rate of Thoughts: Appropriate Rate, Delayed Thought Organization: Circumstantial Associations: Intact Abstract Reasoning: Poor abstract reasoning Thought Content: Ruminations, Helplessness, Worthlessness, Somatic Concerns Perception/Psychotic: Hx psychosis, not current Language: Naming Intact Fund of Knowledge: Basil aware current events Memory: Grossly Intact Suicidal Ideation: Intermittent Homicidal Ideation: Denies Insight: Limited Judgement: Limited Impulse Control: Poor - Laboratory Result Diagrams: 10/28/16 16:34 10/28/16 16:34 Laboratory Results - last 24 hr 10/28/16 10/28/16 16:34 16:34 WBC 6.6 RBC 4.42 Hgb 12.4 Hct 38.2 MCV 86.4 MCH 28.1 MCHC 32.5 RDW Std Deviation 42.7 Plt Count 106 L MPV 11.3 Immature Gran % (Auto) 0.5 Neut % (Auto) 67.5 H Lymph % (Auto) 23.8 [place] % (Auto) 5.9 Eos % (Auto) 1.8 Baso % (Auto) 0.5 Neut # 4.5 Lymph # 1.6 [place] # 0.4 Eos # 0.1 Baso # 0.0 Abs Immat Gran (auto) 0.03 Turbidity < 20 Sodium 144 Potassium 3.9 Chloride 94 L Carbon Dioxide 36 H Anion Gap 14 BUN 20.0 H Creatinine 0.9 GFR Calculation 62 BUN/Creatinine Ratio 22 Glucose 109 Calculated Osmolality 281 H Calcium 9.6 Icterus Index < 2 Specimen Hemolysis 51 H Assessment and Plan (1) Schizophrenia Problem details: by history Current visit: Yes Status: Chronic (2) Generalized anxiety disorder Problem details: by history Current visit: Yes Status: Chronic (3) Oxygen dependent Current visit: Yes Status: Acute (4) COPD (chronic obstructive pulmonary disease) Current visit: Yes Status: Chronic (5) Diabetes Current visit: Yes Status: Chronic (6) Diastolic heart failure Current visit: Yes Status: Chronic (7) Hyperlipidemia Current visit: Yes Status: Chronic (8) Hypertension Current visit: Yes Status: Chronic (9) Morbid obesity with BMI of 50.0-59.9, adult Current visit: Yes Status: Chronic (10) Thrombocytopenia Current visit: Yes Status: Chronic (11) Urge urinary incontinence Current visit: Yes Status: Chronic Continue to monitor mood/sleep in regards to Cymbalta dose - sleep improved last night. Patient will need more intensive therapy services after discharge in addition to med management.
[2016-10-29] MEDS: ATORVASTATIN 20 MG TABLET PO SCH (22:05)
[2016-10-30] MEDS: ISOSORBIDE MONONITRATE ER 60 MG TABLET PO SCH ×2 (07:16→16:58)
[2016-10-30] MEDS: DICYCLOMINE 10mg CAPSULE PO SCH ×3 (07:16→16:57)
[2016-10-30] MEDS: BUMETANIDE 1 MG TABLET PO SCH ×3 (08:02→16:57)
[2016-10-30] MEDS: LACTAID FAST TABLET PO SCH ×3 (08:02→16:57)
[2016-10-30] MEDS: AMANTADINE 100 MG CAPSULE PO SCH ×2 (08:03→21:41)
[2016-10-30] MEDS: ClonazePAM 0.5 MG TABLET PO SCH ×3 (08:03→21:41)
[2016-10-30] MEDS: LORATADINE 10 MG TABLET PO SCH (08:03)
[2016-10-30] MEDS: CYANOCOBALAMIN (B-12) 500mcg TABLET PO SCH (08:03)
[2016-10-30] MEDS: DULOXETINE 60 MG CAPSULE PO SCH ×2 (08:03→21:41)
[2016-10-30] MEDS: LOSARTAN 100 MG TABLET PO SCH (08:03)
[2016-10-30] MEDS ORDERED: SALINE 0.65% NASAL SPRAY 44 ML BOTTLE EA NOSTRIL PRN (10:32)
[2016-10-30] MEDS ORDERED: SIMETHICONE 80 MG CHEWABLE TABLET PO PRN (10:32)
[2016-10-30] MEDS ORDERED: POLYETHYL GLYCOL 3350 17gm PACKET PO PRN (10:33)
--- NOTE | 2016-10-30 10:39 | Progress Note ---
Subjective: Kaila is seen today in follow up. She is up in dining area. She is very well known to this provider- I was her PCP for some time when she was a participant at [facility] about 4 years ago. She does remember me, is very bright as I talk to her. Kaila does have significant psychiatric history. When she becomes acutely psychotic, she becomes insistent that she has killed and cannibalized a person- at one point years ago, police were involved and confirmed this was not factual. She has been recurrently hospitalized, typically for acute psychosis. Mood is variable at baseline- she actually looks very well today when compared to prior interactions several years ago. She does c/o constipation today- requests Miralax. Reports chronic LE pain. No acute changes to pain. Chart is reviewed for collateral information. Objective Vital signs: Temp Pulse Resp BP Pulse Ox 98.1 F 96 16 136/67 94 10/30/16 07:58 10/30/16 07:58 10/30/16 07:58 10/30/16 07:58 10/30/16 07:58 Body Mass Index: 49.9 - Constitutional Present: no acute distress, well nourished, well developed, morbidly obese, cooperative - Routine HEENT Exam Head: Present: normocephalic, atraumatic Eye: Present: EOMI, PERRL ENT: Present: mucous membranes moist - Routine Respiratory Exam Present: decreased breath sounds, CTA bilaterally. Absent: rales, rhonchi, wheezes - Routine Cardiovascular Exam Present: RRR, S1, S2, no murmur - Routine Abdominal Exam Present: soft, normoactive bowel sounds, non distended, non tender Comments: Severe morbid obesity - Routine Extremities Exam Present: edema (1+ Chronic LE edema) - Routine Musculoskeletal Exam Musculoskeletal: limited range of motion (Chronic wheelchair bound) - Routine Skin Exam Present: dry, warm - Routine Neurological Exam Present: alert, oriented X3 - Routine Psychiatric Exam Present: normal affect (Appears near baseline for this pt. ), cooperative. Absent: normal thought process, good insight, good judgment Results - Labs CBC & Chem 7: 10/28/16 16:34 10/28/16 16:34 Assessment and Plan (1) Schizophrenia Problem details: by history Current visit: Yes Status: Chronic (2) Generalized anxiety disorder Problem details: by history Current visit: Yes Status: Chronic (3) COPD (chronic obstructive pulmonary disease) Current visit: Yes Status: Chronic (4) Diastolic heart failure Current visit: Yes Status: Chronic (5) CAD (coronary artery disease) Current visit: Yes Status: Chronic (6) Hypertension Current visit: Yes Status: Chronic (7) Diabetes Current visit: Yes Status: Chronic (8) IBS (irritable bowel syndrome) Current visit: Yes Status: Chronic (9) Hyperlipidemia Current visit: Yes Status: Chronic (10) Morbid obesity with BMI of 50.0-59.9, adult Current visit: Yes Status: Chronic (11) Urge urinary incontinence Current visit: Yes Status: Chronic (12) Oxygen dependent Current visit: Yes Status: Acute (13) Thrombocytopenia Current visit: Yes Status: Chronic 10/25/16 20:23 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 Unknown recent baseline. Recheck CBC in the next 1-2 days. DVT Prophylaxis: other (N/A) Resuscitation Status: Full Code Assessment and Plan: 10/30/16- *Schizophrenia/SI/MDD- Continue supportive care. Safe environment. Per attending. *HTN/HFpEF- Continue diuresis, KCL replacement. Monitor fluid status- may need to decrease Bumex if dehydration remains an issue. Continue noc BiPAP support for LYLE/OHS. *Weakness/Gait instability- Wheelchair bound for many years. *LE pain- reports chronic pain. Continue APAP. Could consider adding Gabapentin low dose for PRN use if persists. *Constipation- Add miralax *Dehydration- repeat labs in AM. Sepsis Assessment - Evaluation Sepsis screening result: No Definite Risk - Focused Exam Vital Signs Temp Pulse Resp BP Pulse Ox 10/30/16 07:58 98.1 F 96 16 136/67 94 Respiratory exam: Present: decreased breath sounds, CTA bilaterally. Absent: accessory muscle use Cardiovascular exam: Present: RRR, S1, S2 Capillary refill: < 2-3 Seconds Hospital Course Summary Disclaimer: The visit summary below is not to be considered part of the above Progress Note. Hospital Course: 10/25/16 16:26 . Schizophrenia with behavioral disturbance. * Agree with admission to [facility] unit for psychiatric evaluation and treatment. * Provide safe and supportive environment and encourage participation in floor activities. * Obtain admission work up including lipid panel, A1c, etc. Results pending. . NAEL. * Ativan and Cymbalta as directed by [facility] team. . COPD with oxygen dependence. * Continuous oxygen at 2-3L to maintain SAO2 >90%. . Diastolic heart failure. * Monitor closely for fluid overload. * Continue home bumex. . Hypertension and CAD with history of prior SC. * Continue home medications including Losartan. * Monitor blood pressure closely. . DM Type 2. * Check A1c as part of admission workup. Results pending. * Carb controlled diet. * Monitor blood sugars in AM and HS. . IBS. * Continue home Bentyl. . Hyperlipidemia. * Continue home atorvastatin. . Morbid obesity. . Urge urinary incontinence. Upon discharge, patient's care will be returned to her PCP. 10/28/16 12:10 Hypernatremia -nursing staff were asked to encourage intake on 10/26/16 -recheck BMP today Thrombocytopenia -chronic -doesn't take ASA d/t thrombocytopenia -recheck CBC today COPD, O2 dependent -stable -cont BiPAP HS DM2 -pt denies hx -A1c was 5.6% -not on any meds CAD, HTN -stable Psych notes removed. 10/30/16 10:45 *Schizophrenia/SI/MDD- Continue supportive care. Safe environment. Per attending. *HTN/HFpEF- Continue diuresis, KCL replacement. Monitor fluid status- may need to decrease Bumex if dehydration remains an issue. Continue noc BiPAP support for LYLE/OHS. *Weakness/Gait instability- Wheelchair bound for many years. *LE pain- reports chronic pain. Continue APAP. Could consider adding Gabapentin low dose for PRN use if persists. *Constipation- Add miralax *Dehydration- repeat labs in AM
--- NOTE | 2016-10-30 18:50 | Neuropsych Progress Note ---
[facility] Subjective Date: 10/30/16 - Sujective/Severity of Illness Medications: Acetaminophen (Tylenol) 1,000 mg PO Q4H PRN PRN Reason: Pain Acetaminophen (Tylenol) 325 - 650 mg PO Q5H PRN PRN Reason: Discomfort Last Admin: 10/28/16 23:52 Dose: 650 mg Amantadine HCl (Symmetrel) 100 mg PO BID [facility] Last Admin: 10/30/16 08:03 Dose: 100 mg Atorvastatin Calcium (Lipitor) 20 mg PO HS [facility] Last Admin: 10/29/16 22:05 Dose: 20 mg Bumetanide (Bumex) 2 mg PO 0800,1200,1600 [facility] Last Admin: 10/30/16 16:57 Dose: 2 mg Clonazepam (Klonopin) 0.5 mg PO TID [facility] Last Admin: 10/30/16 14:10 Dose: 0.5 mg Cyanocobalamin (Vit B-12) 1,000 mcg PO DAILY [facility] Last Admin: 10/30/16 08:03 Dose: 1,000 mcg Dicyclomine HCl (Bentyl) 10 mg PO AC [facility] Last Admin: 10/30/16 16:57 Dose: 10 mg Duloxetine HCl (Cymbalta) 60 mg PO BID [facility] Last Admin: 10/30/16 08:03 Dose: 60 mg Haloperidol (Haldol) 0.5 mg PO Q6H PRN PRN Reason: Extreme agitation Haloperidol Lactate (Haldol) 0.5 mg IM Q6H PRN PRN Reason: Extreme agitation Isosorbide Mononitrate (Imdur) 60 mg PO ACBID [facility] Last Admin: 10/30/16 16:58 Dose: 60 mg Lactase (Lactaid Fast Act) 1 tab PO WM [facility] Last Admin: 10/30/16 16:57 Dose: 1 tab Loperamide HCl (Imodium) 2 mg PO Q4H PRN PRN Reason: Protocol Loratadine (Claritin) 10 mg PO DAILY [facility] Last Admin: 10/30/16 08:03 Dose: 10 mg Lorazepam (Ativan) 0.5 mg PO Q6H PRN PRN Reason: Extreme agitation Lorazepam (Ativan Inj) 0.5 mg IM Q6H PRN PRN Reason: Extreme agitation Lorazepam (Ativan) 0.5 mg PO Q4H PRN PRN Reason: Anxiety Losartan Potassium (Cozaar) 100 mg PO DAILY [facility] Last Admin: 10/30/16 08:03 Dose: 100 mg Menthol (Ricola Sf) 1 lozenge MM Q2H PRN PRN Reason: Cough Polyethylene Glycol (Miralax) 17 gm PO DAILY PRN Potassium Chloride (K-Dur) 20 meq PO BIDWM [facility] Last Admin: 10/30/16 16:57 Dose: 20 meq Risperidone (Risperdal Consta) 50 mg IM Q2WKS [facility] Simethicone (Mylicon) 80 mg PO PRN PRN PRN Reason: Gas Sodium Chloride (Deep Sea Nasal Moisturizing [place]) 2 spray EA NOSTRIL PRN PRN PRN Reason: Congestion Tamsulosin HCl (Flomax) 0.4 mg PO HS [facility] Last Admin: 10/29/16 22:05 Dose: Not Given Subjective: Patient seen and chart reviewed. Case discussed with treatment team. On interview, patient is pleasant and cooperative but reports her mood has been "down." Sleep was still very interrupted overnight - concerned this may be due to increased Cymbalta. She did take a 2 hr nap yesterday. Patient denies any SI, HI or AVH. Patient denies any adverse side effects related to psychotropic medications. Nursing staff report patient has been pleasant/cooperative overall with no behavioral difficulties. Patient is eating well. Psychotropic PRNs required in the past 24 hours: none. Hospitalist repeating labs in AM d/t concern for dehydration. Start Time: 10:20 Stop Time: 10:40 Mental Status Exam Vitals: Last Vital Signs Temp 97.4 F 10/30/16 16:00 Pulse 83 10/30/16 16:00 Resp 18 10/30/16 16:00 BP 153/69 H 10/30/16 16:00 Pulse Ox 96 10/30/16 16:00 Height: 1.65 m Weight: 136.2 kg - Mental Status Exam Muscle Strength/Tone: Normal Dressing: Casual Grooming: Fair Attitude: Cooperative Motor Activity: Normal Eye Contact: Fair Speech: Slowed Volume: Soft Rhythm: Appropriate Rhythm Orientation: Oriented X4 Mood: Depressed Rate of Thoughts: Appropriate Rate, Delayed Thought Organization: Organized Associations: Intact Abstract Reasoning: Poor abstract reasoning Thought Content: Ruminations, Helplessness, Worthlessness, Somatic Concerns Perception/Psychotic: Hx psychosis, not current Language: Naming Intact Fund of Knowledge: Basil aware current events Memory: Grossly Intact Suicidal Ideation: Intermittent Homicidal Ideation: Denies Insight: Limited Judgement: Limited Impulse Control: Poor - Laboratory Result Diagrams: 10/28/16 16:34 10/28/16 16:34 Assessment and Plan (1) Schizophrenia Problem details: by history Current visit: Yes Status: Chronic r/o Schizoaffective disorder, bipolar type (2) Generalized anxiety disorder Problem details: by history Current visit: Yes Status: Chronic (3) Oxygen dependent Current visit: Yes Status: Acute (4) COPD (chronic obstructive pulmonary disease) Current visit: Yes Status: Chronic (5) Diabetes Current visit: Yes Status: Chronic (6) Diastolic heart failure Current visit: Yes Status: Chronic (7) Hyperlipidemia Current visit: Yes Status: Chronic (8) Hypertension Current visit: Yes Status: Chronic (9) Morbid obesity with BMI of 50.0-59.9, adult Current visit: Yes Status: Chronic (10) Thrombocytopenia Current visit: Yes Status: Chronic (11) Urge urinary incontinence Current visit: Yes Status: Chronic Schedule Ativan 1mg PO q HS to target interrupted sleep, monitor mood/behavior and response to treatment.
[2016-10-30] MEDS: ATORVASTATIN 20 MG TABLET PO SCH (21:41)
[2016-10-30] MEDS: TAMSULOSIN 0.4 MG CAPSULE PO SCH (21:41)
[2016-10-30] MEDS: LORazepam 1 MG TABLET PO SCH (21:41)
[2016-10-30] MEDS: ACETAMINOPHEN 500 MG TABLET PO PRN (22:11)
[2016-10-31] MEDS: ISOSORBIDE MONONITRATE ER 60 MG TABLET PO SCH ×2 (06:38→17:16)
[2016-10-31] MEDS: DICYCLOMINE 10mg CAPSULE PO SCH ×3 (06:38→17:16)
[2016-10-31] MEDS: BUMETANIDE 1 MG TABLET PO SCH ×3 (08:22→16:03)
[2016-10-31] MEDS: ClonazePAM 0.5 MG TABLET PO SCH ×3 (08:23→21:17)
[2016-10-31] MEDS: LACTAID FAST TABLET PO SCH ×3 (08:23→17:16)
[2016-10-31] MEDS: LOSARTAN 100 MG TABLET PO SCH (08:23)
[2016-10-31] MEDS: LORATADINE 10 MG TABLET PO SCH (08:23)
[2016-10-31] MEDS: AMANTADINE 100 MG CAPSULE PO SCH ×2 (08:23→21:17)
[2016-10-31] MEDS: DULOXETINE 60 MG CAPSULE PO SCH ×2 (08:23→21:17)
[2016-10-31] MEDS: CYANOCOBALAMIN (B-12) 500mcg TABLET PO SCH (08:24)
[2016-10-31] MEDS: LORazepam 1 MG TABLET PO SCH (21:17)
[2016-10-31] MEDS: ATORVASTATIN 20 MG TABLET PO SCH (21:17)
[2016-10-31] MEDS: TAMSULOSIN 0.4 MG CAPSULE PO SCH (21:18)
--- NOTE | 2016-10-31 23:02 | Neuropsych Progress Note ---
[facility] Subjective Date: 10/31/16 - Sujective/Severity of Illness Medications: Acetaminophen (Tylenol) 1,000 mg PO Q4H PRN PRN Reason: Pain Last Admin: 10/30/16 22:11 Dose: 1,000 mg Acetaminophen (Tylenol) 325 - 650 mg PO Q5H PRN PRN Reason: Discomfort Last Admin: 10/28/16 23:52 Dose: 650 mg Amantadine HCl (Symmetrel) 100 mg PO BID [facility] Last Admin: 10/31/16 21:17 Dose: 100 mg Atorvastatin Calcium (Lipitor) 20 mg PO HS [facility] Last Admin: 10/31/16 21:17 Dose: 20 mg Bumetanide (Bumex) 2 mg PO 0800,1200,1600 [facility] Last Admin: 10/31/16 16:03 Dose: 2 mg Clonazepam (Klonopin) 0.5 mg PO TID [facility] Last Admin: 10/31/16 21:17 Dose: 0.5 mg Cyanocobalamin (Vit B-12) 1,000 mcg PO DAILY [facility] Last Admin: 10/31/16 08:24 Dose: 1,000 mcg Dicyclomine HCl (Bentyl) 10 mg PO AC [facility] Last Admin: 10/31/16 17:16 Dose: 10 mg Duloxetine HCl (Cymbalta) 60 mg PO BID [facility] Last Admin: 10/31/16 21:17 Dose: 60 mg Haloperidol (Haldol) 0.5 mg PO Q6H PRN PRN Reason: Extreme agitation Haloperidol Lactate (Haldol) 0.5 mg IM Q6H PRN PRN Reason: Extreme agitation Isosorbide Mononitrate (Imdur) 60 mg PO ACBID [facility] Last Admin: 10/31/16 17:16 Dose: 60 mg Lactase (Lactaid Fast Act) 1 tab PO WM [facility] Last Admin: 10/31/16 17:16 Dose: 1 tab Loperamide HCl (Imodium) 2 mg PO Q4H PRN PRN Reason: Protocol Loratadine (Claritin) 10 mg PO DAILY [facility] Last Admin: 10/31/16 08:23 Dose: 10 mg Lorazepam (Ativan) 1 mg PO HS [facility] Last Admin: 10/31/16 21:17 Dose: 1 mg Lorazepam (Ativan) 0.5 mg PO Q6H PRN PRN Reason: Extreme agitation Lorazepam (Ativan Inj) 0.5 mg IM Q6H PRN PRN Reason: Extreme agitation Lorazepam (Ativan) 0.5 mg PO Q4H PRN PRN Reason: Anxiety Losartan Potassium (Cozaar) 100 mg PO DAILY [facility] Last Admin: 10/31/16 08:23 Dose: 100 mg Menthol (Ricola Sf) 1 lozenge MM Q2H PRN PRN Reason: Cough Polyethylene Glycol (Miralax) 17 gm PO DAILY PRN Potassium Chloride (K-Dur) 20 meq PO BIDWM [facility] Last Admin: 10/31/16 17:16 Dose: 20 meq Risperidone (Risperdal Consta) 50 mg IM Q2WKS [facility] Simethicone (Mylicon) 80 mg PO PRN PRN PRN Reason: Gas Sodium Chloride (Deep Sea Nasal Moisturizing [place]) 2 spray EA NOSTRIL PRN PRN PRN Reason: Congestion Tamsulosin HCl (Flomax) 0.4 mg PO HS [facility] Last Admin: 10/31/16 21:18 Dose: Not Given Subjective: Patient seen, chart reviewed and vitals noted to be stable. She has history of Schizophrenia and takes Risperidone Consta 50mg IM. Patient states that she often questions her view of reality to make sure it is not distorted. She denies active auditory hallucinations and denies any suicide or homicide ideation. Patient denies acute or chronic EPS. Start Time: 18:30 Stop Time: 18:45 Mental Status Exam Vitals: Last Vital Signs Temp 97.6 F 10/31/16 19:24 Pulse 90 10/31/16 19:24 Resp 16 10/31/16 19:24 BP 133/70 10/31/16 19:24 Pulse Ox 96 10/31/16 19:24 Height: 1.65 m Weight: 136.985 kg - Mental Status Exam Muscle Strength/Tone: Normal Dressing: Casual Grooming: Fair Attitude: Cooperative Motor Activity: Normal Eye Contact: Good Speech: Slowed Volume: Soft Rhythm: Appropriate Rhythm Orientation: Oriented X4 Mood: Depressed Rate of Thoughts: Appropriate Rate, Delayed Thought Organization: Organized Associations: Intact Abstract Reasoning: Poor abstract reasoning Thought Content: Ruminations, Helplessness, Worthlessness, Somatic Concerns Perception/Psychotic: Hx psychosis, not current Language: Naming Intact Fund of Knowledge: Basil aware current events Memory: Grossly Intact Suicidal Ideation: Denies Homicidal Ideation: Denies Insight: Limited Judgement: Limited Impulse Control: Poor - Laboratory Result Diagrams: 10/31/16 04:52 10/31/16 04:52 Laboratory Results - last 24 hr 10/31/16 10/31/16 04:52 04:52 WBC 6.1 RBC 4.39 Hgb 12.2 Hct 38.8 MCV 88.4 MCH 27.8 MCHC 31.4 RDW Std Deviation 43.1 Plt Count 97 L MPV 11.0 Immature Gran % (Auto) 0.5 Neut % (Auto) 63.1 Lymph % (Auto) 26.2 [place] % (Auto) 7.2 Eos % (Auto) 2.5 Baso % (Auto) 0.5 Neut # 3.8 Lymph # 1.6 [place] # 0.4 Eos # 0.2 Baso # 0.0 Abs Immat Gran (auto) 0.03 Turbidity < 20 Sodium 144 Potassium 3.9 Chloride 95 L Carbon Dioxide 35 H Anion Gap 14 BUN 22.0 H Creatinine 1.0 GFR Calculation 55 BUN/Creatinine Ratio 22 Glucose 114 H Calculated Osmolality 281 H Calcium 9.8 Phosphorus 3.8 Icterus Index < 2 Albumin 4.4 Specimen Hemolysis < 15 Assessment and Plan (1) CAD (coronary artery disease) Current visit: Yes Status: Chronic (2) COPD (chronic obstructive pulmonary disease) Current visit: Yes Status: Chronic (3) Generalized anxiety disorder Problem details: by history Current visit: Yes Status: Chronic (4) Hyperlipidemia Current visit: Yes Status: Chronic (5) Hypertension Current visit: Yes Status: Chronic (6) Schizophrenia Problem details: by history Current visit: Yes Status: Chronic Cont current medications
[2016-11-01] MEDS: ACETAMINOPHEN 500 MG TABLET PO PRN (01:58)
[2016-11-01] MEDS: DICYCLOMINE 10mg CAPSULE PO SCH ×3 (05:52→15:52)
[2016-11-01] MEDS: ISOSORBIDE MONONITRATE ER 60 MG TABLET PO SCH ×2 (05:52→15:52)
[2016-11-01] MEDS: BUMETANIDE 1 MG TABLET PO SCH ×3 (08:05→15:50)
[2016-11-01] MEDS: ClonazePAM 0.5 MG TABLET PO SCH ×3 (08:06→20:52)
[2016-11-01] MEDS: LACTAID FAST TABLET PO SCH ×3 (08:06→17:18)
[2016-11-01] MEDS: LORATADINE 10 MG TABLET PO SCH (08:06)
[2016-11-01] MEDS: CYANOCOBALAMIN (B-12) 500mcg TABLET PO SCH (08:06)
[2016-11-01] MEDS: LOSARTAN 100 MG TABLET PO SCH (08:06)
[2016-11-01] MEDS: DULOXETINE 60 MG CAPSULE PO SCH ×2 (08:06→20:52)
[2016-11-01] MEDS: AMANTADINE 100 MG CAPSULE PO SCH ×2 (08:06→20:53)
[2016-11-01] MEDS: ACETAMINOPHEN 325 MG TABLET PO PRN ×2 (09:07→21:26)
--- NOTE | 2016-11-01 10:47 | Progress Note ---
Subjective: Kaila was sitting at the table, finishing breakfast. Initially, she stated that she is doing well. She denied any new breathing problems or pain. She has been consuming 100% of meals. She stated she slept very poorly last night. The more she talked about this, the more worked up she became. She then began complaining about another patient who has been screaming for the last 2-3 days, and has created more distress for her. She thinks Kellie might have something to do with her poor sleep quality last night too. Her legs are more swollen today b/c she didn't rest well last night. Objective Vital signs: Temp Pulse Resp BP Pulse Ox 96.7 F L 78 18 129/67 96 11/01/16 07:48 11/01/16 07:48 11/01/16 07:48 11/01/16 07:48 11/01/16 07:48 Weight: 136.985 kg - Constitutional Present: no acute distress, well nourished, well developed, morbidly obese, cooperative - Routine HEENT Exam ENT: Present: mucous membranes moist - Routine Respiratory Exam Present: decreased breath sounds - Routine Cardiovascular Exam Present: S1, S2 - Routine Abdominal Exam Present: normoactive bowel sounds, non tender - Routine Extremities Exam Present: edema (b/l) - Routine Musculoskeletal Exam Musculoskeletal: no joint swelling - Routine Skin Exam Present: intact, dry, warm - Routine Neurological Exam Present: alert, oriented X3 - Routine Psychiatric Exam Present: normal affect, normal thought process Results - Labs CBC & Chem 7: 10/31/16 04:52 10/31/16 04:52 Assessment and Plan (1) Schizophrenia Problem details: by history Current visit: Yes Status: Chronic (2) Generalized anxiety disorder Problem details: by history Current visit: Yes Status: Chronic (3) COPD (chronic obstructive pulmonary disease) Current visit: Yes Status: Chronic (4) Diastolic heart failure Current visit: Yes Status: Chronic (5) CAD (coronary artery disease) Current visit: Yes Status: Chronic (6) Hypertension Current visit: Yes Status: Chronic (7) Diabetes Current visit: Yes Status: Chronic (8) IBS (irritable bowel syndrome) Current visit: Yes Status: Chronic (9) Hyperlipidemia Current visit: Yes Status: Chronic (10) Morbid obesity with BMI of 50.0-59.9, adult Current visit: Yes Status: Chronic (11) Urge urinary incontinence Current visit: Yes Status: Chronic (12) Oxygen dependent Current visit: Yes Status: Acute (13) Thrombocytopenia Current visit: Yes Status: Chronic 10/25/16 20:23 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 Unknown recent baseline. Recheck CBC in the next 1-2 days. Assessment and Plan: Hypernatremia -resolved; Na 144 HTN & CHF -continue Bumex, Imdur Schizophrenia/SI/MDD -per attending Sepsis Assessment - Evaluation Sepsis screening result: No Definite Risk - Focused Exam Vital Signs Temp Pulse Resp BP Pulse Ox 11/01/16 07:48 96.7 F L 78 18 129/67 96 Respiratory exam: Present: decreased breath sounds, CTA bilaterally. Absent: accessory muscle use Cardiovascular exam: Present: RRR, S1, S2 Capillary refill: < 2-3 Seconds Hospital Course Summary Disclaimer: The visit summary below is not to be considered part of the above Progress Note. Hospital Course: 10/25/16 16:26 . Schizophrenia with behavioral disturbance. * Agree with admission to [facility] for psychiatric evaluation and treatment. * Provide safe and supportive environment and encourage participation in floor activities. * Obtain admission work up including lipid panel, A1c, etc. Results pending. . NAEL. * Ativan and Cymbalta as directed by [facility] team. . COPD with oxygen dependence. * Continuous oxygen at 2-3L to maintain SAO2 >90%. . Diastolic heart failure. * Monitor closely for fluid overload. * Continue home bumex. . Hypertension and CAD with history of prior [place]. * Continue home medications including Losartan. * Monitor blood pressure closely. . DM Type 2. * Check A1c as part of admission workup. Results pending. * Carb controlled diet. * Monitor blood sugars in AM and HS. . IBS. * Continue home Bentyl. . Hyperlipidemia. * Continue home atorvastatin. . Morbid obesity. . Urge urinary incontinence. Upon discharge, patient's care will be returned to her PCP. 10/28/16 12:10 Hypernatremia -nursing staff were asked to encourage intake on 10/26/16 -recheck BMP today Thrombocytopenia -chronic -doesn't take ASA d/t thrombocytopenia -recheck CBC today COPD, O2 dependent -stable -cont BiPAP HS DM2 -pt denies hx -A1c was 5.6% -not on any meds CAD, HTN -stable Psych notes removed. 10/30/16 10:45 *Schizophrenia/SI/MDD- Continue supportive care. Safe environment. Per attending. *HTN/HFpEF- Continue diuresis, KCL replacement. Monitor fluid status- may need to decrease Bumex if dehydration remains an issue. Continue noc BiPAP support for LYLE/OHS. *Weakness/Gait instability- Wheelchair bound for many years. *LE pain- reports chronic pain. Continue APAP. Could consider adding Gabapentin low dose for PRN use if persists. *Constipation- Add miralax *Dehydration- repeat labs in AM
--- NOTE | 2016-11-01 18:28 | Neuropsych Progress Note ---
[facility] Subjective Date: 11/01/16 - Sujective/Severity of Illness Medications: Acetaminophen (Tylenol) 1,000 mg PO Q4H PRN PRN Reason: Pain Last Admin: 11/01/16 01:58 Dose: 1,000 mg Acetaminophen (Tylenol) 325 - 650 mg PO Q5H PRN PRN Reason: Discomfort Last Admin: 11/01/16 09:07 Dose: 650 mg Amantadine HCl (Symmetrel) 100 mg PO BID [facility] Last Admin: 11/01/16 08:06 Dose: 100 mg Atorvastatin Calcium (Lipitor) 20 mg PO HS [facility] Last Admin: 10/31/16 21:17 Dose: 20 mg Bumetanide (Bumex) 2 mg PO 0800,1200,1600 [facility] Last Admin: 11/01/16 15:50 Dose: 2 mg Clonazepam (Klonopin) 0.5 mg PO TID [facility] Last Admin: 11/01/16 15:52 Dose: 0.5 mg Cyanocobalamin (Vit B-12) 1,000 mcg PO DAILY [facility] Last Admin: 11/01/16 08:06 Dose: 1,000 mcg Dicyclomine HCl (Bentyl) 10 mg PO AC [facility] Last Admin: 11/01/16 15:52 Dose: 10 mg Duloxetine HCl (Cymbalta) 60 mg PO BID [facility] Last Admin: 11/01/16 08:06 Dose: 60 mg Haloperidol (Haldol) 0.5 mg PO Q6H PRN PRN Reason: Extreme agitation Haloperidol Lactate (Haldol) 0.5 mg IM Q6H PRN PRN Reason: Extreme agitation Isosorbide Mononitrate (Imdur) 60 mg PO ACBID [facility] Last Admin: 11/01/16 15:52 Dose: 60 mg Lactase (Lactaid Fast [place]) 1 tab PO WM [facility] Last Admin: 11/01/16 17:18 Dose: 1 tab Loperamide HCl (Imodium) 2 mg PO Q4H PRN PRN Reason: Protocol Loratadine (Claritin) 10 mg PO DAILY [facility] Last Admin: 11/01/16 08:06 Dose: 10 mg Lorazepam (Ativan) 0.5 mg PO Q6H PRN PRN Reason: Extreme agitation Lorazepam (Ativan Inj) 0.5 mg IM Q6H PRN PRN Reason: Extreme agitation Lorazepam (Ativan) 0.5 mg PO Q4H PRN PRN Reason: Anxiety Losartan Potassium (Cozaar) 100 mg PO DAILY [facility] Last Admin: 11/01/16 08:06 Dose: 100 mg Menthol (Ricola Sf) 1 lozenge MM Q2H PRN PRN Reason: Cough Polyethylene Glycol (Miralax) 17 gm PO DAILY PRN Potassium Chloride (K-Dur) 20 meq PO BIDWM [facility] Last Admin: 11/01/16 17:18 Dose: 20 meq Risperidone (Risperdal) 1 mg PO HS [facility] Risperidone (Risperdal Consta) 50 mg IM Q2WKS [facility] Simethicone (Mylicon) 80 mg PO PRN PRN PRN Reason: Gas Sodium Chloride (Deep Sea Nasal Moisturizing [place]) 2 spray EA NOSTRIL PRN PRN PRN Reason: Congestion Tamsulosin HCl (Flomax) 0.4 mg PO HS [facility] Last Admin: 10/31/16 21:18 Dose: Not Given Subjective: Patient seen, chart reviewed and vitals noted to be stable. Patient had trouble falling and staying asleep last night. She is concerned that this could be due to increase in the dose of Cymbalta 60mg BID. However, she was able to take an hour nap this afternoon and feels rested. Staff reports that patient often calls out to staff several times at night and often complains that other patients have been disturbing her. Reviewed patient medications and she has been on Clonazepam for sometime and also takes Lorazepam 1mg at bedtime which has not helped with insomnia. She hesitates when asked about psychotic symptoms and later denies it. Discussed adding Risperidone 1mg q HS and stopping Lorazepam and she agrees with it. Start Time: 13:20 Stop Time: 13:40 Mental Status Exam Vitals: Last Vital Signs Temp 97.5 F 11/01/16 16:00 Pulse 93 11/01/16 16:00 Resp 16 11/01/16 16:00 BP 123/65 11/01/16 16:00 Pulse Ox 98 11/01/16 16:00 Height: 1.65 m Weight: 136.985 kg - Mental Status Exam Muscle Strength/Tone: Normal Dressing: Casual Grooming: Fair Attitude: Cooperative Motor Activity: Normal Eye Contact: Good Speech: Slowed Volume: Soft Rhythm: Appropriate Rhythm Orientation: Oriented X4 Mood: Irritable Rate of Thoughts: Appropriate Rate, Delayed Thought Organization: Organized Associations: Intact Abstract Reasoning: Poor abstract reasoning Thought Content: Ruminations, Helplessness, Worthlessness, Somatic Concerns Perception/Psychotic: Hx psychosis, not current Language: Naming Intact Fund of Knowledge: Basil aware current events Memory: Grossly Intact Suicidal Ideation: Denies Homicidal Ideation: Denies Insight: Limited Judgement: Limited Impulse Control: Poor - Laboratory Result Diagrams: 10/31/16 04:52 10/31/16 04:52 Assessment and Plan (1) Schizophrenia Problem details: by history Current visit: Yes Status: Chronic (2) CAD (coronary artery disease) Current visit: Yes Status: Chronic (3) COPD (chronic obstructive pulmonary disease) Current visit: Yes Status: Chronic (4) Generalized anxiety disorder Problem details: by history Current visit: Yes Status: Chronic (5) Hyperlipidemia Current visit: Yes Status: Chronic (6) Hypertension Current visit: Yes Status: Chronic 1. DC Lorazepam 1mg q HS 2. Start Risperidone 1mg po q hs
[2016-11-01] MEDS: RisperiDONE 1 MG TABLET PO SCH ×2 (20:52→21:45)
[2016-11-01] MEDS: ATORVASTATIN 20 MG TABLET PO SCH (21:44)
[2016-11-01] MEDS: TAMSULOSIN 0.4 MG CAPSULE PO SCH (21:45)
[2016-11-02] MEDS: ISOSORBIDE MONONITRATE ER 60 MG TABLET PO SCH ×3 (00:32→17:20)
[2016-11-02] MEDS: DICYCLOMINE 10mg CAPSULE PO SCH ×5 (00:32→17:18)
[2016-11-02] MEDS: LORATADINE 10 MG TABLET PO SCH (08:07)
[2016-11-02] MEDS: CYANOCOBALAMIN (B-12) 500mcg TABLET PO SCH (08:07)
[2016-11-02] MEDS: LOSARTAN 100 MG TABLET PO SCH (08:07)
[2016-11-02] MEDS: DULOXETINE 60 MG CAPSULE PO SCH (08:07)
[2016-11-02] MEDS: BUMETANIDE 1 MG TABLET PO SCH ×3 (08:07→15:24)
[2016-11-02] MEDS: LACTAID FAST TABLET PO SCH ×3 (08:07→17:20)
[2016-11-02] MEDS: AMANTADINE 100 MG CAPSULE PO SCH ×2 (08:07→21:11)
[2016-11-02] MEDS: ClonazePAM 0.5 MG TABLET PO SCH ×3 (08:07→21:11)
[2016-11-02] MEDS: ACETAMINOPHEN 500 MG TABLET PO PRN ×2 (08:45→21:11)
--- NOTE | 2016-11-02 17:34 | Neuropsych Progress Note ---
[facility] Subjective Date: 11/02/16 - Sujective/Severity of Illness Medications: Acetaminophen (Tylenol) 1,000 mg PO Q4H PRN PRN Reason: Pain Last Admin: 11/02/16 08:45 Dose: 1,000 mg Acetaminophen (Tylenol) 325 - 650 mg PO Q5H PRN PRN Reason: Discomfort Last Admin: 11/01/16 21:26 Dose: 650 mg Amantadine HCl (Symmetrel) 100 mg PO BID [facility] Last Admin: 11/02/16 08:07 Dose: 100 mg Atorvastatin Calcium (Lipitor) 20 mg PO HS [facility] Last Admin: 11/01/16 21:44 Dose: 20 mg Bumetanide (Bumex) 2 mg PO 0800,1200,1600 [facility] Last Admin: 11/02/16 15:24 Dose: 2 mg Clonazepam (Klonopin) 0.5 mg PO TID [facility] Last Admin: 11/02/16 15:24 Dose: 0.5 mg Cyanocobalamin (Vit B-12) 1,000 mcg PO DAILY [facility] Last Admin: 11/02/16 08:07 Dose: 1,000 mcg Dicyclomine HCl (Bentyl) 10 mg PO AC [facility] Last Admin: 11/02/16 17:18 Dose: Not Given Duloxetine HCl (Cymbalta) 60 mg PO DAILY [facility] Haloperidol (Haldol) 0.5 mg PO Q6H PRN PRN Reason: Extreme agitation Haloperidol Lactate (Haldol) 0.5 mg IM Q6H PRN PRN Reason: Extreme agitation Isosorbide Mononitrate (Imdur) 60 mg PO ACBID [facility] Last Admin: 11/02/16 17:20 Dose: 60 mg Lactase (Lactaid Fast Act) 1 tab PO WM [facility] Last Admin: 11/02/16 17:20 Dose: 1 tab Loperamide HCl (Imodium) 2 mg PO Q4H PRN PRN Reason: LOOSE STOOLS Loratadine (Claritin) 10 mg PO 0730 [facility] Lorazepam (Ativan Inj) 0.5 mg IM Q6H PRN PRN Reason: Extreme agitation Lorazepam (Ativan) 0.5 mg PO Q4H PRN PRN Reason: Anxiety Losartan Potassium (Cozaar) 100 mg PO DAILY [facility] Last Admin: 11/02/16 08:07 Dose: 100 mg Menthol (Ricola Sf) 1 lozenge MM Q2H PRN PRN Reason: Cough Polyethylene Glycol (Miralax) 17 gm PO DAILY PRN Potassium Chloride (K-Dur) 20 meq PO BIDWM [facility] Last Admin: 11/02/16 17:20 Dose: 20 meq Risperidone (Risperdal) 1 mg PO [facility] Last Admin: 11/01/16 21:45 Dose: 1 mg Risperidone (Risperdal Consta) 50 mg IM Q2WKS [facility] Simethicone (Mylicon) 80 mg PO PRN PRN PRN Reason: Gas Sodium Chloride (Deep Sea Nasal Moisturizing [place]) 2 spray EA NOSTRIL PRN PRN PRN Reason: Congestion Tamsulosin HCl (Flomax) 0.4 mg PO [facility] Last Admin: 11/01/16 21:45 Dose: Not Given Subjective: Patient seen, chart reviewed and case discussed with nursing staff. Patient was seen in the day room and reports that she was able to sleep for some time last night and felt much better this morning. She describes her mood as "fine" and denies any SI, HI and no AH/VH. Staff reports that patient becomes agitated easily due to the screaming from other patients on the unit. She was started on Risperidone 1mg last night and she tolerated it without any side effect. She denies any acute or chronic EPS. The plan today will be to decrease Cymbalta to 60mg daily. Start Time: 12:45 Stop Time: 13:06 Mental Status Exam Vitals: Last Vital Signs Temp 97.2 F 11/02/16 16:00 Pulse 79 11/02/16 16:00 Resp 20 11/02/16 16:00 BP 115/51 11/02/16 16:00 Pulse Ox 94 11/02/16 16:00 Height: 1.65 m Weight: 136.6 kg - Mental Status Exam Muscle Strength/Tone: Normal Dressing: Casual Grooming: Fair Attitude: Cooperative Motor Activity: Normal Eye Contact: Good Speech: Slowed Volume: Soft Rhythm: Appropriate Rhythm Orientation: Oriented X4 Mood: Neutral Rate of Thoughts: Appropriate Rate, Delayed Thought Organization: Organized Associations: Intact Abstract Reasoning: Poor abstract reasoning Thought Content: Ruminations, Helplessness, Worthlessness, Somatic Concerns Perception/Psychotic: Hx psychosis, not current Language: Naming Intact Fund of Knowledge: Basil aware current events Memory: Grossly Intact Suicidal Ideation: Denies Homicidal Ideation: Denies Insight: Limited Judgement: Limited Impulse Control: Fair - Laboratory Result Diagrams: 11/02/16 05:15 10/31/16 04:52 Laboratory Results - last 24 hr 11/02/16 05:15 WBC 7.0 RBC 4.20 Hgb 11.6 L Hct 37.0 MCV 88.1 MCH 27.6 MCHC 31.4 RDW Std Deviation 42.8 Plt Count 90 L MPV 11.3 Immature Gran % (Auto) 0.4 Neut % (Auto) 67.3 H Lymph % (Auto) 24.7 [place] % (Auto) 5.6 Eos % (Auto) 1.6 Baso % (Auto) 0.4 Neut # 4.7 Lymph # 1.7 [place] # 0.4 Eos # 0.1 Baso # 0.0 Abs Immat Gran (auto) 0.03 Assessment and Plan (1) Schizophrenia Problem details: by history Current visit: Yes Status: Chronic (2) CAD (coronary artery disease) Current visit: Yes Status: Chronic (3) COPD (chronic obstructive pulmonary disease) Current visit: Yes Status: Chronic (4) Generalized anxiety disorder Problem details: by history Current visit: Yes Status: Chronic (5) Hyperlipidemia Current visit: Yes Status: Chronic (6) Hypertension Current visit: Yes Status: Chronic Decrease Cymbalta from 60mg BID to 60mg daily. Consider possible discharge by Monday or early next week.
[2016-11-02] MEDS: ATORVASTATIN 20 MG TABLET PO SCH (21:11)
[2016-11-02] MEDS: RisperiDONE 1 MG TABLET PO SCH (21:11)
[2016-11-02] MEDS: TAMSULOSIN 0.4 MG CAPSULE PO SCH (21:12)
[2016-11-02] MEDS: LORazepam INTENSOL 1mg/0.5ml ORAL LIQUID SL PRN (21:12)
[2016-11-03] MEDS: LOSARTAN 100 MG TABLET PO SCH (09:48)
[2016-11-03] MEDS: CYANOCOBALAMIN (B-12) 500mcg TABLET PO SCH (09:48)
[2016-11-03] MEDS: BUMETANIDE 1 MG TABLET PO SCH ×4 (09:48→15:46)
[2016-11-03] MEDS: AMANTADINE 100 MG CAPSULE PO SCH ×2 (09:48→21:31)
[2016-11-03] MEDS: LACTAID FAST TABLET PO SCH ×4 (09:49→17:26)
[2016-11-03] MEDS: LORATADINE 10 MG TABLET PO SCH (09:49)
[2016-11-03] MEDS: DULOXETINE 60 MG CAPSULE PO SCH (09:49)
[2016-11-03] MEDS: ClonazePAM 0.5 MG TABLET PO SCH ×3 (09:49→21:31)
[2016-11-03] MEDS: ISOSORBIDE MONONITRATE ER 60 MG TABLET PO SCH ×2 (09:49→17:25)
[2016-11-03] MEDS: DICYCLOMINE 10mg CAPSULE PO SCH ×3 (09:49→17:25)
--- NOTE | 2016-11-03 11:25 | Progress Note ---
Subjective: Kaila is seen while up in the chair today. She is on her chronic oxygen of 2 liters by nasal canula. She denies feeling short of breath or having chest pain. No GI complaints. Reports appetite is fair. States she would like a cheeseburger for lunch. Reports that she does have some chronic foot pain bilaterally. Vital signs remained stable Objective Vital signs: Temp Pulse Resp BP Pulse Ox 97.6 F 85 16 119/59 96 11/03/16 10:54 11/03/16 10:54 11/03/16 10:54 11/03/16 10:54 11/03/16 10:54 Weight: 136.6 kg - Constitutional Present: no acute distress, well nourished, well developed, morbidly obese, cooperative - Routine HEENT Exam Eye: Present: EOMI, PERRL - Routine Respiratory Exam Present: CTA bilaterally - Routine Cardiovascular Exam Present: RRR, S1, S2 - Routine Abdominal Exam Present: soft, normoactive bowel sounds - Routine Extremities Exam Present: full ROM - Routine Back/Spine/Pelvis Exam Back/Spine: Present: full ROM - Routine Skin Exam Present: intact, warm - Routine Neurological Exam Present: alert, CN II-XII intact - Routine Psychiatric Exam Present: normal affect Results - Labs CBC & Chem 7: 11/02/16 05:15 10/31/16 04:52 Assessment and Plan (1) Schizophrenia Problem details: by history Current visit: Yes Status: Chronic (2) Generalized anxiety disorder Problem details: by history Current visit: Yes Status: Chronic (3) COPD (chronic obstructive pulmonary disease) Current visit: Yes Status: Chronic (4) Diastolic heart failure Current visit: Yes Status: Chronic (5) CAD (coronary artery disease) Current visit: Yes Status: Chronic (6) Hypertension Current visit: Yes Status: Chronic (7) Diabetes Current visit: Yes Status: Chronic (8) IBS (irritable bowel syndrome) Current visit: Yes Status: Chronic (9) Hyperlipidemia Current visit: Yes Status: Chronic (10) Morbid obesity with BMI of 50.0-59.9, adult Current visit: Yes Status: Chronic (11) Urge urinary incontinence Current visit: Yes Status: Chronic (12) Oxygen dependent Current visit: Yes Status: Acute (13) Thrombocytopenia Current visit: Yes Status: Chronic 10/25/16 20:23 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 Unknown recent baseline. Recheck CBC in the next 1-2 days. Assessment and Plan: 11/03 CBC reviewed from yesterday. Remains unremarkable. Last electrolytes from 619 were also normal. Nursing staff reports that patient is refusing Flomax and has asked for it to be discontinued. HTN & CHF continue with Bumex and Imdur Otherwise, patient appears medically stable. Continue to encourage patient to participate in unit activities and provide a safe environment Psychiatric care as per Dr. Bernal Sepsis Assessment - Evaluation Sepsis screening result: No Definite Risk Hospital Course Summary Disclaimer: The visit summary below is not to be considered part of the above Progress Note. Hospital Course: 10/25/16 16:26 . Schizophrenia with behavioral disturbance. * Agree with admission to [facility] for psychiatric evaluation and treatment. * Provide safe and supportive environment and encourage participation in floor activities. * Obtain admission work up including lipid panel, A1c, etc. Results pending. . NAEL. * Ativan and Cymbalta as directed by [facility] team. . COPD with oxygen dependence. * Continuous oxygen at 2-3L to maintain SAO2 >90%. . Diastolic heart failure. * Monitor closely for fluid overload. * Continue home bumex. . Hypertension and CAD with history of prior [place]. * Continue home medications including Losartan. * Monitor blood pressure closely. . DM Type 2. * Check A1c as part of admission workup. Results pending. * Carb controlled diet. * Monitor blood sugars in AM and HS. . IBS. * Continue home Bentyl. . Hyperlipidemia. * Continue home atorvastatin. . Morbid obesity. . Urge urinary incontinence. Upon discharge, patient's care will be returned to her PCP. 10/28/16 12:10 Hypernatremia -nursing staff were asked to encourage intake on 10/26/16 -recheck BMP today Thrombocytopenia -chronic -doesn't take ASA d/t thrombocytopenia -recheck CBC today COPD, O2 dependent -stable -cont BiPAP HS DM2 -pt denies hx -A1c was 5.6% -not on any meds CAD, HTN -stable Psych notes removed. 10/30/16 10:45 *Schizophrenia/SI/MDD- Continue supportive care. Safe environment. Per attending. *HTN/HFpEF- Continue diuresis, KCL replacement. Monitor fluid status- may need to decrease Bumex if dehydration remains an issue. Continue noc BiPAP support for LYLE/OHS. *Weakness/Gait instability- Wheelchair bound for many years. *LE pain- reports chronic pain. Continue APAP. Could consider adding Gabapentin low dose for PRN use if persists. *Constipation- Add miralax *Dehydration- repeat labs in AM 11/03/16 11:25 CBC reviewed from yesterday. Remains unremarkable. Last electrolytes from 619 were also normal. Nursing staff reports that patient is refusing Flomax and has asked for it to be discontinued. HTN & CHF continue with Bumex and Imdur Otherwise, patient appears medically stable. Continue to encourage patient to participate in unit activities and provide a safe environment Psychiatric care as per Dr. Bernal
--- NOTE | 2016-11-03 12:38 | Neuropsych Progress Note ---
[facility] Subjective Date: 11/03/16 - Sujective/Severity of Illness Medications: Acetaminophen (Tylenol) 1,000 mg PO Q4H PRN PRN Reason: Pain Last Admin: 11/02/16 21:11 Dose: 1,000 mg Acetaminophen (Tylenol) 325 - 650 mg PO Q5H PRN PRN Reason: Discomfort Last Admin: 11/01/16 21:26 Dose: 650 mg Amantadine HCl (Symmetrel) 100 mg PO BID [facility] Last Admin: 11/03/16 09:48 Dose: 100 mg Atorvastatin Calcium (Lipitor) 20 mg PO HS [facility] Last Admin: 11/02/16 21:11 Dose: 20 mg Bumetanide (Bumex) 2 mg PO 0800,1200,1600 [facility] Last Admin: 11/03/16 09:48 Dose: 2 mg Clonazepam (Klonopin) 0.5 mg PO TID [facility] Last Admin: 11/03/16 09:49 Dose: 0.5 mg Cyanocobalamin (Vit B-12) 1,000 mcg PO DAILY [facility] Last Admin: 11/03/16 09:48 Dose: 1,000 mcg Dicyclomine HCl (Bentyl) 10 mg PO AC [facility] Last Admin: 11/03/16 09:49 Dose: 10 mg Duloxetine HCl (Cymbalta) 60 mg PO DAILY [facility] Last Admin: 11/03/16 09:49 Dose: 60 mg Haloperidol (Haldol) 0.5 mg PO Q6H PRN PRN Reason: Extreme agitation Haloperidol Lactate (Haldol) 0.5 mg IM Q6H PRN PRN Reason: Extreme agitation Isosorbide Mononitrate (Imdur) 60 mg PO ACBID [facility] Last Admin: 11/03/16 09:49 Dose: 60 mg Lactase (Lactaid Fast Act) 1 tab PO WM [facility] Last Admin: 11/03/16 09:49 Dose: 1 tab Loperamide HCl (Imodium) 2 mg PO Q4H PRN PRN Reason: LOOSE STOOLS Loratadine (Claritin) 10 mg PO 0730 [facility] Last Admin: 11/03/16 09:49 Dose: 10 mg Lorazepam (Ativan Intensol) 0.5 mg SL Q6H PRN Last Admin: 11/02/16 21:12 Dose: 0.5 mg Lorazepam (Ativan Inj) 0.5 mg IM Q6H PRN PRN Reason: Extreme agitation Lorazepam (Ativan) 0.5 mg PO Q4H PRN PRN Reason: Anxiety Losartan Potassium (Cozaar) 100 mg PO DAILY [facility] Last Admin: 11/03/16 09:48 Dose: 100 mg Menthol (Ricola Sf) 1 lozenge MM Q2H PRN PRN Reason: Cough Polyethylene Glycol (Miralax) 17 gm PO DAILY PRN Potassium Chloride (K-Dur) 20 meq PO BIDWM [facility] Last Admin: 11/03/16 09:49 Dose: 20 meq Risperidone (Risperdal) 1 mg PO HS [facility] Last Admin: 11/02/16 21:11 Dose: 1 mg Risperidone (Risperdal Consta) 50 mg IM Q2WKS [facility] Simethicone (Mylicon) 80 mg PO PRN PRN PRN Reason: Gas Sodium Chloride (Deep Sea Nasal Moisturizing [place]) 2 spray EA NOSTRIL PRN PRN PRN Reason: Congestion Subjective: Patient seen, chart reviewed and case discussed with nursing staff. She was said to have slept for 4.5 hours last night, but patient feels like she actually slept more than that. Staff reports that she was given Lorazepam 0.5mg po at 2111 last night due to insomnia. Patient states that she is angry this morning and wants to work on been happy today. Sleep hygiene education was provided to patient and the plan is for her to stay up during the day today so as to be able to sleep well at night. She is tolerating her medication and denies any side effect. She denies SI/HI and no AH/VH. The plan is for discharge back to the facility early next week Start Time: 10:40 Stop Time: 11:00 Mental Status Exam Vitals: Last Vital Signs Temp 97.6 F 11/03/16 10:54 Pulse 85 11/03/16 10:54 Resp 16 11/03/16 10:54 BP 119/59 11/03/16 10:54 Pulse Ox 96 11/03/16 10:54 Height: 1.65 m Weight: 136.6 kg - Mental Status Exam Muscle Strength/Tone: Normal Dressing: Casual Grooming: Fair Attitude: Cooperative Motor Activity: Normal Eye Contact: Good Speech: Normal Volume: Soft Rhythm: Appropriate Rhythm Orientation: Oriented X4 Mood: Neutral Rate of Thoughts: Appropriate Rate, Delayed Thought Organization: Organized Associations: Intact Abstract Reasoning: Poor abstract reasoning Thought Content: Ruminations, Helplessness, Worthlessness, Somatic Concerns Perception/Psychotic: Hx psychosis, not current Language: Naming Intact Fund of Knowledge: Basil aware current events Memory: Grossly Intact Suicidal Ideation: Denies Homicidal Ideation: Denies Insight: Limited Judgement: Limited Impulse Control: Fair - Laboratory Result Diagrams: 11/02/16 05:15 10/31/16 04:52 Assessment and Plan (1) Schizophrenia Problem details: by history Current visit: Yes Status: Chronic (2) CAD (coronary artery disease) Current visit: Yes Status: Chronic (3) COPD (chronic obstructive pulmonary disease) Current visit: Yes Status: Chronic (4) Generalized anxiety disorder Problem details: by history Current visit: Yes Status: Chronic (5) Hyperlipidemia Current visit: Yes Status: Chronic (6) Hypertension Current visit: Yes Status: Chronic Cont current medication. Consider discharge early next week.
[2016-11-03] MEDS: ACETAMINOPHEN 500 MG TABLET PO PRN (14:35)
[2016-11-03] MEDS: ATORVASTATIN 20 MG TABLET PO SCH (21:31)
[2016-11-03] MEDS: RisperiDONE 1 MG TABLET PO SCH (21:31)
[2016-11-04] MEDS: ACETAMINOPHEN 500 MG TABLET PO PRN ×2 (02:56→20:40)
[2016-11-04] MEDS: LORATADINE 10 MG TABLET PO SCH (09:12)
[2016-11-04] MEDS: DULOXETINE 60 MG CAPSULE PO SCH (09:12)
[2016-11-04] MEDS: ISOSORBIDE MONONITRATE ER 60 MG TABLET PO SCH ×2 (09:12→16:32)
[2016-11-04] MEDS: CYANOCOBALAMIN (B-12) 500mcg TABLET PO SCH (09:12)
[2016-11-04] MEDS: LOSARTAN 100 MG TABLET PO SCH (09:12)
[2016-11-04] MEDS: DICYCLOMINE 10mg CAPSULE PO SCH ×3 (09:12→16:32)
[2016-11-04] MEDS: LACTAID FAST TABLET PO SCH ×3 (09:13→16:32)
[2016-11-04] MEDS: ClonazePAM 0.5 MG TABLET PO SCH ×3 (09:13→20:41)
[2016-11-04] MEDS: BUMETANIDE 1 MG TABLET PO SCH ×3 (09:13→16:32)
[2016-11-04] MEDS: AMANTADINE 100 MG CAPSULE PO SCH ×2 (09:13→20:41)
[2016-11-04] MEDS: ACETAMINOPHEN 325 MG TABLET PO PRN (09:48)
--- NOTE | 2016-11-04 18:05 | Neuropsych Progress Note ---
[facility] Subjective Date: 11/04/16 - Sujective/Severity of Illness Medications: Acetaminophen (Tylenol) 1,000 mg PO Q4H PRN PRN Reason: Pain Last Admin: 11/04/16 02:56 Dose: 1,000 mg Acetaminophen (Tylenol) 325 - 650 mg PO Q5H PRN PRN Reason: Discomfort Last Admin: 11/04/16 09:48 Dose: 650 mg Amantadine HCl (Symmetrel) 100 mg PO BID [facility] Last Admin: 11/04/16 09:13 Dose: 100 mg Atorvastatin Calcium (Lipitor) 20 mg PO HS [facility] Last Admin: 11/03/16 21:31 Dose: 20 mg Bumetanide (Bumex) 2 mg PO 0800,1200,1600 [facility] Last Admin: 11/04/16 16:32 Dose: 2 mg Clonazepam (Klonopin) 0.5 mg PO TID [facility] Last Admin: 11/04/16 15:08 Dose: 0.5 mg Cyanocobalamin (Vit B-12) 1,000 mcg PO DAILY [facility] Last Admin: 11/04/16 09:12 Dose: 1,000 mcg Dicyclomine HCl (Bentyl) 10 mg PO AC [facility] Last Admin: 11/04/16 16:32 Dose: 10 mg Duloxetine HCl (Cymbalta) 60 mg PO DAILY [facility] Last Admin: 11/04/16 09:12 Dose: 60 mg Haloperidol (Haldol) 0.5 mg PO Q6H PRN PRN Reason: Extreme agitation Haloperidol Lactate (Haldol) 0.5 mg IM Q6H PRN PRN Reason: Extreme agitation Hydrocortisone (Cortizone-10 Cream) 1 applic TOP BID PRN Isosorbide Mononitrate (Imdur) 60 mg PO ACBID [facility] Last Admin: 11/04/16 16:32 Dose: 60 mg Lactase (Lactaid Fast Act) 1 tab PO WM [facility] Last Admin: 11/04/16 16:32 Dose: 1 tab Loperamide HCl (Imodium) 2 mg PO Q4H PRN PRN Reason: LOOSE STOOLS Loratadine (Claritin) 10 mg PO 0730 [facility] Last Admin: 11/04/16 09:12 Dose: 10 mg Lorazepam (Ativan Intensol) 0.5 mg SL Q6H PRN Last Admin: 11/02/16 21:12 Dose: 0.5 mg Lorazepam (Ativan Inj) 0.5 mg IM Q6H PRN PRN Reason: Extreme agitation Lorazepam (Ativan) 0.5 mg PO Q4H PRN PRN Reason: Anxiety Losartan Potassium (Cozaar) 100 mg PO DAILY [facility] Last Admin: 11/04/16 09:12 Dose: 100 mg Menthol (Ricola Sf) 1 lozenge MM Q2H PRN PRN Reason: Cough Polyethylene Glycol (Miralax) 17 gm PO DAILY PRN Potassium Chloride (K-Dur) 20 meq PO BIDWM [facility] Last Admin: 11/04/16 16:32 Dose: 20 meq Risperidone (Risperdal) 1 mg PO HS [facility] Last Admin: 11/03/16 21:31 Dose: 1 mg Risperidone (Risperdal Consta) 50 mg IM Q2WKS [facility] Simethicone (Mylicon) 80 mg PO PRN PRN PRN Reason: Gas Sodium Chloride (Deep Sea Nasal Moisturizing [place]) 2 spray EA NOSTRIL PRN PRN PRN Reason: Congestion Subjective: Pt seen and chart examined. Nursing reports pt has done well on the unit. Sleeping well and has a good appetite. On face to face the pt states she is doing well. She reports her mood is improved and she denies any S/I. She denies psychotic symptoms. Reports tolerating her medication well. Voices no concerns at this time. Start Time: 17:15 Stop Time: 17:30 Mental Status Exam Vitals: Last Vital Signs Temp 96.8 F 11/04/16 09:22 Pulse 89 11/04/16 09:22 Resp 18 11/04/16 09:22 BP 131/56 11/04/16 09:22 Pulse Ox 94 11/04/16 09:22 Height: 1.65 m Weight: 136.6 kg - Mental Status Exam Muscle Strength/Tone: Normal Dressing: Casual Grooming: Fair Attitude: Cooperative Motor Activity: Normal Eye Contact: Good Speech: Normal Volume: Soft Rhythm: Appropriate Rhythm Orientation: Oriented X4 Mood: Neutral Rate of Thoughts: Appropriate Rate, Delayed Thought Organization: Organized Associations: Intact Abstract Reasoning: Poor abstract reasoning Thought Content: Ruminations, Helplessness, Worthlessness, Somatic Concerns Perception/Psychotic: Hx psychosis, not current Language: Naming Intact Fund of Knowledge: Basli aware current events Memory: Grossly Intact Suicidal Ideation: Denies Homicidal Ideation: Denies Insight: Limited Judgement: Limited Impulse Control: Fair - Laboratory Result Diagrams: 11/02/16 05:15 10/31/16 04:52 Assessment and Plan (1) Schizophrenia Problem details: by history Current visit: Yes Status: Chronic Continue current care Hospital Course Summary Disclaimer: The visit summary below is not to be considered part of the above Progress Note. Hospital Course: 10/25/16 16:26 . Schizophrenia with behavioral disturbance. * Agree with admission to [facility] for psychiatric evaluation and treatment. * Provide safe and supportive environment and encourage participation in floor activities. * Obtain admission work up including lipid panel, A1c, etc. Results pending. . NAEL. * Ativan and Cymbalta as directed by [facility] team. . COPD with oxygen dependence. * Continuous oxygen at 2-3L to maintain SAO2 >90%. . Diastolic heart failure. * Monitor closely for fluid overload. * Continue home bumex. . Hypertension and CAD with history of prior [place]. * Continue home medications including Losartan. * Monitor blood pressure closely. . DM Type 2. * Check A1c as part of admission workup. Results pending. * Carb controlled diet. * Monitor blood sugars in AM and HS. . IBS. * Continue home Bentyl. . Hyperlipidemia. * Continue home atorvastatin. . Morbid obesity. . Urge urinary incontinence. Upon discharge, patient's care will be returned to her PCP. 10/28/16 12:10 Hypernatremia -nursing staff were asked to encourage intake on 10/26/16 -recheck BMP today Thrombocytopenia -chronic -doesn't take ASA d/t thrombocytopenia -recheck CBC today COPD, O2 dependent -stable -cont BiPAP HS DM2 -pt denies hx -A1c was 5.6% -not on any meds CAD, HTN -stable Psych notes removed. 10/30/16 10:45 *Schizophrenia/SI/MDD- Continue supportive care. Safe environment. Per attending. *HTN/HFpEF- Continue diuresis, KCL replacement. Monitor fluid status- may need to decrease Bumex if dehydration remains an issue. Continue noc BiPAP support for LYLE/OHS. *Weakness/Gait instability- Wheelchair bound for many years. *LE pain- reports chronic pain. Continue APAP. Could consider adding Gabapentin low dose for PRN use if persists. *Constipation- Add miralax *Dehydration- repeat labs in AM 11/03/16 11:25 CBC reviewed from yesterday. Remains unremarkable. Last electrolytes from 619 were also normal. Nursing staff reports that patient is refusing Flomax and has asked for it to be discontinued. HTN & CHF continue with Bumex and Imdur Otherwise, patient appears medically stable. Continue to encourage patient to participate in unit activities and provide a safe environment Psychiatric care as per Dr. Bernal 11/04/16 18:05 11/04/16 Continue current care
[2016-11-04] MEDS: RisperiDONE 1 MG TABLET PO SCH ×2 (20:41→23:13)
[2016-11-04] MEDS: ATORVASTATIN 20 MG TABLET PO SCH ×2 (20:41→23:13)
[2016-11-04] MEDS: HYDROCORTISONE 1% CREAM 28.35gm TOP PRN (20:42)
[2016-11-05] MEDS: ISOSORBIDE MONONITRATE ER 60 MG TABLET PO SCH ×2 (06:17→16:30)
[2016-11-05] MEDS: DICYCLOMINE 10mg CAPSULE PO SCH ×3 (06:17→16:30)
[2016-11-05] MEDS: DULOXETINE 60 MG CAPSULE PO SCH (08:02)
[2016-11-05] MEDS: LACTAID FAST TABLET PO SCH ×3 (08:02→16:30)
[2016-11-05] MEDS: CYANOCOBALAMIN (B-12) 500mcg TABLET PO SCH (08:02)
[2016-11-05] MEDS: LOSARTAN 100 MG TABLET PO SCH (08:02)
[2016-11-05] MEDS: AMANTADINE 100 MG CAPSULE PO SCH ×2 (08:02→21:07)
[2016-11-05] MEDS: LORATADINE 10 MG TABLET PO SCH (08:02)
[2016-11-05] MEDS: BUMETANIDE 1 MG TABLET PO SCH ×3 (08:02→16:30)
[2016-11-05] MEDS: ClonazePAM 0.5 MG TABLET PO SCH ×3 (08:02→20:08)
--- NOTE | 2016-11-05 11:37 | Neuropsych Progress Note ---
[facility] Subjective Date: 11/05/16 - Sujective/Severity of Illness Medications: Acetaminophen (Tylenol) 1,000 mg PO Q4H PRN PRN Reason: Pain Last Admin: 11/04/16 20:40 Dose: 1,000 mg Acetaminophen (Tylenol) 325 - 650 mg PO Q5H PRN PRN Reason: Discomfort Last Admin: 11/04/16 09:48 Dose: 650 mg Amantadine HCl (Symmetrel) 100 mg PO BID [facility] Last Admin: 11/05/16 08:02 Dose: 100 mg Atorvastatin Calcium (Lipitor) 20 mg PO HS [facility] Last Admin: 11/04/16 23:13 Dose: Not Given Bumetanide (Bumex) 2 mg PO 0800,1200,1600 [facility] Last Admin: 11/05/16 08:02 Dose: 2 mg Clonazepam (Klonopin) 0.5 mg PO TID [facility] Last Admin: 11/05/16 08:02 Dose: 0.5 mg Cyanocobalamin (Vit B-12) 1,000 mcg PO DAILY [facility] Last Admin: 11/05/16 08:02 Dose: 1,000 mcg Dicyclomine HCl (Bentyl) 10 mg PO AC [facility] Last Admin: 11/05/16 06:17 Dose: 10 mg Duloxetine HCl (Cymbalta) 60 mg PO DAILY [facility] Last Admin: 11/05/16 08:02 Dose: 60 mg Haloperidol (Haldol) 0.5 mg PO Q6H PRN PRN Reason: Extreme agitation Haloperidol Lactate (Haldol) 0.5 mg IM Q6H PRN PRN Reason: Extreme agitation Hydrocortisone (Cortizone-10 Cream) 1 applic TOP BID PRN Last Admin: 11/04/16 20:42 Dose: 1 applic Isosorbide Mononitrate (Imdur) 60 mg PO ACBID [facility] Last Admin: 11/05/16 06:17 Dose: 60 mg Lactase (Lactaid Fast Act) 1 tab PO WM [facility] Last Admin: 11/05/16 08:02 Dose: 1 tab Loperamide HCl (Imodium) 2 mg PO Q4H PRN PRN Reason: LOOSE STOOLS Loratadine (Claritin) 10 mg PO 0730 [facility] Last Admin: 11/05/16 08:02 Dose: 10 mg Lorazepam (Ativan Intensol) 0.5 mg SL Q6H PRN Last Admin: 11/02/16 21:12 Dose: 0.5 mg Lorazepam (Ativan Inj) 0.5 mg IM Q6H PRN PRN Reason: Extreme agitation Lorazepam (Ativan) 0.5 mg PO Q4H PRN PRN Reason: Anxiety Losartan Potassium (Cozaar) 100 mg PO DAILY [facility] Last Admin: 11/05/16 08:02 Dose: 100 mg Menthol (Ricola Sf) 1 lozenge MM Q2H PRN PRN Reason: Cough Polyethylene Glycol (Miralax) 17 gm PO DAILY PRN Potassium Chloride (K-Dur) 20 meq PO BIDWM [facility] Last Admin: 11/05/16 08:03 Dose: 20 meq Risperidone (Risperdal) 1 mg PO HS [facility] Last Admin: 11/04/16 23:13 Dose: Not Given Risperidone (Risperdal Consta) 50 mg IM Q2WKS [facility] Simethicone (Mylicon) 80 mg PO PRN PRN PRN Reason: Gas Sodium Chloride (Deep Sea Nasal Moisturizing [place]) 2 spray EA NOSTRIL PRN PRN PRN Reason: Congestion Subjective: Pt seen and chart examined. Nursing reports pt has done well on the unit. Slept approximately 5 hours and has a good appetite. On face to face the pt states she is doing well. She reports her mood is improved and she denies any S /I. She denies psychotic symptoms. Reports tolerating her medication well. Voices no concerns at this time. Start Time: 11:15 Stop Time: 11:30 Mental Status Exam Vitals: Last Vital Signs Temp 97.6 F 11/05/16 07:35 Pulse 78 11/05/16 07:35 Resp 18 11/05/16 07:35 BP 133/65 11/05/16 07:35 Pulse Ox 97 11/05/16 07:35 Height: 1.65 m Weight: 136.6 kg - Mental Status Exam Muscle Strength/Tone: Normal Dressing: Casual Grooming: Good Attitude: Cooperative Motor Activity: Normal Eye Contact: Good Speech: Normal Volume: Normal Rhythm: Appropriate Rhythm Orientation: Oriented X4 Mood: Euthymic Affect: Bright Rate of Thoughts: Appropriate Rate Thought Organization: Organized Associations: Intact Abstract Reasoning: Poor abstract reasoning Thought Content: Normal Perception/Psychotic: Hx psychosis, not current Language: Naming Intact Fund of Knowledge: Basil aware current events Memory: Grossly Intact Suicidal Ideation: Denies Homicidal Ideation: Denies Insight: Limited Judgement: Limited Impulse Control: Fair - Laboratory Result Diagrams: 11/02/16 05:15 10/31/16 04:52 Assessment and Plan (1) Schizophrenia Problem details: by history Current visit: Yes Status: Chronic Hospital Course Summary Disclaimer: The visit summary below is not to be considered part of the above Progress Note. Hospital Course: 10/25/16 16:26 . Schizophrenia with behavioral disturbance. * Agree with admission to [facility] for psychiatric evaluation and treatment. * Provide safe and supportive environment and encourage participation in floor activities. * Obtain admission work up including lipid panel, A1c, etc. Results pending. . NAEL. * Ativan and Cymbalta as directed by [facility] team. . COPD with oxygen dependence. * Continuous oxygen at 2-3L to maintain SAO2 >90%. . Diastolic heart failure. * Monitor closely for fluid overload. * Continue home bumex. . Hypertension and CAD with history of prior [place]. * Continue home medications including Losartan. * Monitor blood pressure closely. . DM Type 2. * Check A1c as part of admission workup. Results pending. * Carb controlled diet. * Monitor blood sugars in AM and HS. . IBS. * Continue home Bentyl. . Hyperlipidemia. * Continue home atorvastatin. . Morbid obesity. . Urge urinary incontinence. Upon discharge, patient's care will be returned to her PCP. 10/28/16 12:10 Hypernatremia -nursing staff were asked to encourage intake on 10/26/16 -recheck BMP today Thrombocytopenia -chronic -doesn't take ASA d/t thrombocytopenia -recheck CBC today COPD, O2 dependent -stable -cont BiPAP HS DM2 -pt denies hx -A1c was 5.6% -not on any meds CAD, HTN -stable Psych notes removed. 10/30/16 10:45 *Schizophrenia/SI/MDD- Continue supportive care. Safe environment. Per attending. *HTN/HFpEF- Continue diuresis, KCL replacement. Monitor fluid status- may need to decrease Bumex if dehydration remains an issue. Continue noc BiPAP support for LYLE/OHS. *Weakness/Gait instability- Wheelchair bound for many years. *LE pain- reports chronic pain. Continue APAP. Could consider adding Gabapentin low dose for PRN use if persists. *Constipation- Add miralax *Dehydration- repeat labs in AM 11/03/16 11:25 CBC reviewed from yesterday. Remains unremarkable. Last electrolytes from 619 were also normal. Nursing staff reports that patient is refusing Flomax and has asked for it to be discontinued. HTN & CHF continue with Bumex and Imdur Otherwise, patient appears medically stable. Continue to encourage patient to participate in unit activities and provide a safe environment Psychiatric care as per Dr. Bernal 11/04/16 18:05 11/04/16 Continue current care 11/05/16 11:37 Continue current care
[2016-11-05] MEDS: ACETAMINOPHEN 325 MG TABLET PO PRN (15:03)
[2016-11-05] MEDS: HYDROCORTISONE 1% CREAM 28.35gm TOP PRN (15:37)
--- NOTE | 2016-11-05 16:05 | Progress Note ---
Subjective: Kaila was seen this morning while she breakfast. She is alert and pleasant. She continues on her baseline oxygen of 2 liters. Denies having any respiratory problems, chest pain, or GI concerns. She chronically has toe pain, cramping, which she attributes to her anxiety. Objective Vital signs: Temp Pulse Resp BP Pulse Ox 97.6 F 78 18 133/65 97 11/05/16 07:35 11/05/16 07:35 11/05/16 07:35 11/05/16 07:35 11/05/16 07:35 Weight: 136.6 kg - Constitutional Present: no acute distress, well nourished, well developed, morbidly obese, cooperative - Routine HEENT Exam Head: Present: normocephalic, atraumatic ENT: Present: mucous membranes moist - Routine Respiratory Exam Present: CTA bilaterally - Routine Cardiovascular Exam Present: RRR, S1, S2 - Routine Abdominal Exam Present: soft, normoactive bowel sounds - Routine Back/Spine/Pelvis Exam Back/Spine: Present: full ROM - Routine Skin Exam Present: intact - Routine Neurological Exam Present: alert, oriented X3, CN II-XII intact Results - Labs CBC & Chem 7: 11/02/16 05:15 10/31/16 04:52 Assessment and Plan (1) Schizophrenia Problem details: by history Current visit: Yes Status: Chronic (2) Generalized anxiety disorder Problem details: by history Current visit: Yes Status: Chronic (3) COPD (chronic obstructive pulmonary disease) Current visit: Yes Status: Chronic (4) Diastolic heart failure Current visit: Yes Status: Chronic (5) CAD (coronary artery disease) Current visit: Yes Status: Chronic (6) Hypertension Current visit: Yes Status: Chronic (7) Diabetes Current visit: Yes Status: Chronic (8) IBS (irritable bowel syndrome) Current visit: Yes Status: Chronic (9) Hyperlipidemia Current visit: Yes Status: Chronic (10) Morbid obesity with BMI of 50.0-59.9, adult Current visit: Yes Status: Chronic (11) Urge urinary incontinence Current visit: Yes Status: Chronic (12) Oxygen dependent Current visit: Yes Status: Acute (13) Thrombocytopenia Current visit: Yes Status: Chronic 10/25/16 20:23 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 Unknown recent baseline. Recheck CBC in the next 1-2 days. Assessment and Plan: 11/05 Continue on baseline oxygen without complications. HTN & CHF continue with Bumex and Imdur- BP stable 133/65 Otherwise, patient appears medically stable. Continue to encourage patient to participate in unit activities and provide a safe environment Psychiatric care as per Dr. Heredia Sepsis Assessment - Evaluation Sepsis screening result: No Definite Risk Hospital Course Summary Disclaimer: The visit summary below is not to be considered part of the above Progress Note. Hospital Course: 10/25/16 16:26 . Schizophrenia with behavioral disturbance. * Agree with admission to [facility] for psychiatric evaluation and treatment. * Provide safe and supportive environment and encourage participation in floor activities. * Obtain admission work up including lipid panel, A1c, etc. Results pending. . NAEL. * Ativan and Cymbalta as directed by [facility] team. . COPD with oxygen dependence. * Continuous oxygen at 2-3L to maintain SAO2 >90%. . Diastolic heart failure. * Monitor closely for fluid overload. * Continue home bumex. . Hypertension and CAD with history of prior [place]. * Continue home medications including Losartan. * Monitor blood pressure closely. . DM Type 2. * Check A1c as part of admission workup. Results pending. * Carb controlled diet. * Monitor blood sugars in AM and HS. . IBS. * Continue home Bentyl. . Hyperlipidemia. * Continue home atorvastatin. . Morbid obesity. . Urge urinary incontinence. Upon discharge, patient's care will be returned to her PCP. 10/28/16 12:10 Hypernatremia -nursing staff were asked to encourage intake on 10/26/16 -recheck BMP today Thrombocytopenia -chronic -doesn't take ASA d/t thrombocytopenia -recheck CBC today COPD, O2 dependent -stable -cont BiPAP HS DM2 -pt denies hx -A1c was 5.6% -not on any meds CAD, HTN -stable Psych notes removed. 10/30/16 10:45 *Schizophrenia/SI/MDD- Continue supportive care. Safe environment. Per attending. *HTN/HFpEF- Continue diuresis, KCL replacement. Monitor fluid status- may need to decrease Bumex if dehydration remains an issue. Continue noc BiPAP support for LYLE/OHS. *Weakness/Gait instability- Wheelchair bound for many years. *LE pain- reports chronic pain. Continue APAP. Could consider adding Gabapentin low dose for PRN use if persists. *Constipation- Add miralax *Dehydration- repeat labs in AM 11/03/16 11:25 CBC reviewed from yesterday. Remains unremarkable. Last electrolytes from 619 were also normal. Nursing staff reports that patient is refusing Flomax and has asked for it to be discontinued. HTN & CHF continue with Bumex and Imdur Otherwise, patient appears medically stable. Continue to encourage patient to participate in unit activities and provide a safe environment Psychiatric care as per Dr. Bernal 11/04/16 18:05 11/04/16 Continue current care 11/05/16 11:37 Continue current care
[2016-11-05] MEDS: ATORVASTATIN 20 MG TABLET PO SCH (21:07)
[2016-11-05] MEDS: RisperiDONE 1 MG TABLET PO SCH (21:08)
[2016-11-06] MEDS: LORazepam INTENSOL 1mg/0.5ml ORAL LIQUID SL PRN (03:46)
[2016-11-06] MEDS: DICYCLOMINE 10mg CAPSULE PO SCH ×4 (04:59→17:06)
[2016-11-06] MEDS: LORATADINE 10 MG TABLET PO SCH ×2 (04:59→08:59)
[2016-11-06] MEDS: ISOSORBIDE MONONITRATE ER 60 MG TABLET PO SCH ×3 (04:59→17:07)
[2016-11-06] MEDS: DULOXETINE 60 MG CAPSULE PO SCH (07:59)
[2016-11-06] MEDS: BUMETANIDE 1 MG TABLET PO SCH ×3 (07:59→15:35)
[2016-11-06] MEDS: LACTAID FAST TABLET PO SCH ×3 (07:59→17:06)
[2016-11-06] MEDS: ClonazePAM 0.5 MG TABLET PO SCH ×3 (08:00→20:30)
[2016-11-06] MEDS: CYANOCOBALAMIN (B-12) 500mcg TABLET PO SCH (08:00)
[2016-11-06] MEDS: AMANTADINE 100 MG CAPSULE PO SCH ×2 (08:00→20:30)
[2016-11-06] MEDS: LOSARTAN 100 MG TABLET PO SCH (08:01)
[2016-11-06] MEDS: ACETAMINOPHEN 500 MG TABLET PO PRN ×2 (10:54→13:58)
--- NOTE | 2016-11-06 12:45 | Neuropsych Progress Note ---
[facility] Subjective Date: 11/06/16 - Sujective/Severity of Illness Medications: Acetaminophen (Tylenol) 1,000 mg PO Q4H PRN PRN Reason: Pain Last Admin: 11/06/16 10:54 Dose: 1,000 mg Acetaminophen (Tylenol) 325 - 650 mg PO Q5H PRN PRN Reason: Discomfort Last Admin: 11/05/16 15:03 Dose: 650 mg Amantadine HCl (Symmetrel) 100 mg PO BID [facility] Last Admin: 11/06/16 08:00 Dose: 100 mg Atorvastatin Calcium (Lipitor) 20 mg PO HS [facility] Last Admin: 11/05/16 21:07 Dose: 20 mg Bumetanide (Bumex) 2 mg PO 0800,1200,1600 [facility] Last Admin: 11/06/16 11:53 Dose: 2 mg Clonazepam (Klonopin) 0.5 mg PO TID [facility] Last Admin: 11/06/16 08:00 Dose: 0.5 mg Cyanocobalamin (Vit B-12) 1,000 mcg PO DAILY [facility] Last Admin: 11/06/16 08:00 Dose: 1,000 mcg Dicyclomine HCl (Bentyl) 10 mg PO AC [facility] Last Admin: 11/06/16 10:54 Dose: 10 mg Duloxetine HCl (Cymbalta) 60 mg PO DAILY [facility] Last Admin: 11/06/16 07:59 Dose: 60 mg Haloperidol (Haldol) 0.5 mg PO Q6H PRN PRN Reason: Extreme agitation Haloperidol Lactate (Haldol) 0.5 mg IM Q6H PRN PRN Reason: Extreme agitation Hydrocortisone (Cortizone-10 Cream) 1 applic TOP BID PRN Last Admin: 11/05/16 15:37 Dose: 1 applic Isosorbide Mononitrate (Imdur) 60 mg PO ACBID [facility] Last Admin: 11/06/16 08:58 Dose: Not Given Lactase (Lactaid Fast Act) 1 tab PO WM [facility] Last Admin: 11/06/16 11:53 Dose: 1 tab Loperamide HCl (Imodium) 2 mg PO Q4H PRN PRN Reason: LOOSE STOOLS Loratadine (Claritin) 10 mg PO 0730 [facility] Last Admin: 11/06/16 08:59 Dose: Not Given Lorazepam (Ativan Intensol) 0.5 mg SL Q6H PRN Last Admin: 11/06/16 03:46 Dose: 0.5 mg Lorazepam (Ativan Inj) 0.5 mg IM Q6H PRN PRN Reason: Extreme agitation Lorazepam (Ativan) 0.5 mg PO Q4H PRN PRN Reason: Anxiety Losartan Potassium (Cozaar) 100 mg PO DAILY [facility] Last Admin: 11/06/16 08:01 Dose: 100 mg Menthol (Ricola Sf) 1 lozenge MM Q2H PRN PRN Reason: Cough Polyethylene Glycol (Miralax) 17 gm PO DAILY PRN Potassium Chloride (K-Dur) 20 meq PO BIDWM [facility] Last Admin: 11/06/16 08:00 Dose: 20 meq Risperidone (Risperdal) 1 mg PO HS [facility] Last Admin: 11/05/16 21:08 Dose: 1 mg Risperidone (Risperdal Consta) 50 mg IM Q2WKS PATRICK Simethicone (Mylicon) 80 mg PO PRN PRN PRN Reason: Gas Sodium Chloride (Deep Sea Nasal Moisturizing [place]) 2 spray EA NOSTRIL PRN PRN PRN Reason: Congestion Subjective: Pt seen and chart examined. Nursing reports pt has done well on the unit. Some poor sleep and irritability at night but does very well during the day. On face to face the pt states she is doing well. Mood stable. Denies any S/I or psychosis. Tolerating meds Start Time: 11:30 Stop Time: 11:45 Mental Status Exam Vitals: Last Vital Signs Temp 96.7 F L 11/06/16 08:00 Pulse 73 11/06/16 08:00 Resp 18 11/06/16 08:00 BP 145/69 H 11/06/16 08:00 Pulse Ox 96 11/06/16 08:00 Height: 1.65 m Weight: 136.6 kg - Mental Status Exam Muscle Strength/Tone: Normal Dressing: Casual Grooming: Good Attitude: Cooperative Motor Activity: Normal Eye Contact: Good Speech: Normal Volume: Normal Rhythm: Appropriate Rhythm Orientation: Oriented X4 Mood: Euthymic Rate of Thoughts: Appropriate Rate Thought Organization: Organized Associations: Intact Abstract Reasoning: Poor abstract reasoning Thought Content: Normal Perception/Psychotic: Hx psychosis, not current Language: Naming Intact Fund of Knowledge: Basil aware current events Memory: Grossly Intact Suicidal Ideation: Denies Homicidal Ideation: Denies Insight: Limited Judgement: Limited Impulse Control: Fair - Laboratory Result Diagrams: 11/02/16 05:15 10/31/16 04:52 Assessment and Plan (1) Schizophrenia Problem details: by history Current visit: Yes Status: Chronic Hospital Course Summary Disclaimer: The visit summary below is not to be considered part of the above Progress Note. Hospital Course: 10/25/16 16:26 . Schizophrenia with behavioral disturbance. * Agree with admission to [facility] unit for psychiatric evaluation and treatment. * Provide safe and supportive environment and encourage participation in floor activities. * Obtain admission work up including lipid panel, A1c, etc. Results pending. . NAEL. * Ativan and Cymbalta as directed by [facility] team. . COPD with oxygen dependence. * Continuous oxygen at 2-3L to maintain SAO2 >90%. . Diastolic heart failure. * Monitor closely for fluid overload. * Continue home bumex. . Hypertension and CAD with history of prior [place]. * Continue home medications including Losartan. * Monitor blood pressure closely. . DM Type 2. * Check A1c as part of admission workup. Results pending. * Carb controlled diet. * Monitor blood sugars in AM and HS. . IBS. * Continue home Bentyl. . Hyperlipidemia. * Continue home atorvastatin. . Morbid obesity. . Urge urinary incontinence. Upon discharge, patient's care will be returned to her PCP. 10/28/16 12:10 Hypernatremia -nursing staff were asked to encourage intake on 10/26/16 -recheck BMP today Thrombocytopenia -chronic -doesn't take ASA d/t thrombocytopenia -recheck CBC today COPD, O2 dependent -stable -cont BiPAP HS DM2 -pt denies hx -A1c was 5.6% -not on any meds CAD, HTN -stable Psych notes removed. 10/30/16 10:45 *Schizophrenia/SI/MDD- Continue supportive care. Safe environment. Per attending. *HTN/HFpEF- Continue diuresis, KCL replacement. Monitor fluid status- may need to decrease Bumex if dehydration remains an issue. Continue noc BiPAP support for LYLE/OHS. *Weakness/Gait instability- Wheelchair bound for many years. *LE pain- reports chronic pain. Continue APAP. Could consider adding Gabapentin low dose for PRN use if persists. *Constipation- Add miralax *Dehydration- repeat labs in AM 11/03/16 11:25 CBC reviewed from yesterday. Remains unremarkable. Last electrolytes from 619 were also normal. Nursing staff reports that patient is refusing Flomax and has asked for it to be discontinued. HTN & CHF continue with Bumex and Imdur Otherwise, patient appears medically stable. Continue to encourage patient to participate in unit activities and provide a safe environment Psychiatric care as per Dr. Bernal 11/04/16 18:05 11/04/16 Continue current care 11/05/16 11:37 Continue current care 11/06/16 12:44 Continue current care
[2016-11-06] MEDS: RisperiDONE 1 MG TABLET PO SCH (20:30)
[2016-11-06] MEDS: ATORVASTATIN 20 MG TABLET PO SCH (20:30)
[2016-11-07] MEDS: LORazepam INTENSOL 1mg/0.5ml ORAL LIQUID SL PRN (00:59)
[2016-11-07] MEDS: ACETAMINOPHEN 500 MG TABLET PO PRN ×2 (01:00→18:55)
[2016-11-07] MEDS: ATORVASTATIN 20 MG TABLET PO SCH ×3 (02:40→22:01)
[2016-11-07] MEDS: RisperiDONE 1 MG TABLET PO SCH ×2 (02:41→20:09)
[2016-11-07] MEDS: ISOSORBIDE MONONITRATE ER 60 MG TABLET PO SCH ×2 (05:54→17:09)
[2016-11-07] MEDS: DICYCLOMINE 10mg CAPSULE PO SCH ×3 (05:54→17:09)
[2016-11-07] MEDS: BUMETANIDE 1 MG TABLET PO SCH ×3 (08:28→17:10)
[2016-11-07] MEDS: LORATADINE 10 MG TABLET PO SCH (08:28)
[2016-11-07] MEDS: LOSARTAN 100 MG TABLET PO SCH (08:29)
[2016-11-07] MEDS: ClonazePAM 0.5 MG TABLET PO SCH ×3 (08:29→20:13)
[2016-11-07] MEDS: CYANOCOBALAMIN (B-12) 500mcg TABLET PO SCH (08:29)
[2016-11-07] MEDS: LACTAID FAST TABLET PO SCH ×3 (08:29→17:09)
[2016-11-07] MEDS: AMANTADINE 100 MG CAPSULE PO SCH ×2 (08:29→20:09)
[2016-11-07] MEDS: DULOXETINE 60 MG CAPSULE PO SCH (08:29)
--- NOTE | 2016-11-07 09:46 | Progress Note ---
Subjective: Kaila was seen after eating breakfast. Her biggest complaint is increasing edema to her right leg. She reminded me that her right leg is always more edematous than her left b/c she had surgery on it, but it is getting more swollen. Usually when this happens she takes a small pill that makes her urinate more frequently. She denies any SOA or chest pain. She denies any abdominal pain or GI complaints. Objective Vital signs: Temp Pulse Resp BP Pulse Ox 97.6 F 83 16 138/65 97 11/07/16 08:00 11/07/16 08:00 11/07/16 08:00 11/07/16 08:00 11/07/16 08:00 Weight: 136.6 kg - Constitutional Present: no acute distress, well nourished, well developed, morbidly obese, cooperative - Routine HEENT Exam ENT: Present: mucous membranes moist, oropharynx clear - Routine Respiratory Exam Present: CTA bilaterally, diminished air movement - Routine Cardiovascular Exam Present: S1, S2 - Routine Abdominal Exam Present: soft, non distended, non tender - Routine Extremities Exam Present: edema (B/L pitting edema, R>L) - Routine Musculoskeletal Exam Musculoskeletal: - Routine Skin Exam Present: intact, erythema (mild erythema B/L LE - venous insufficiency suspected ), dry, warm - Routine Neurological Exam Present: alert, oriented X3 - Routine Psychiatric Exam Present: normal affect, normal thought process Results - Labs CBC & Chem 7: 11/07/16 10:50 11/07/16 10:50 Assessment and Plan (1) Schizophrenia Problem details: by history Current visit: Yes Status: Chronic (2) Generalized anxiety disorder Problem details: by history Current visit: Yes Status: Chronic (3) COPD (chronic obstructive pulmonary disease) Current visit: Yes Status: Chronic (4) Diastolic heart failure Current visit: Yes Status: Chronic (5) CAD (coronary artery disease) Current visit: Yes Status: Chronic (6) Hypertension Current visit: Yes Status: Chronic (7) Diabetes Current visit: Yes Status: Chronic (8) IBS (irritable bowel syndrome) Current visit: Yes Status: Chronic (9) Hyperlipidemia Current visit: Yes Status: Chronic (10) Morbid obesity with BMI of 50.0-59.9, adult Current visit: Yes Status: Chronic (11) Urge urinary incontinence Current visit: Yes Status: Chronic (12) Oxygen dependent Current visit: Yes Status: Acute (13) Thrombocytopenia Current visit: Yes Status: Chronic 10/25/16 20:23 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 Unknown recent baseline. Recheck CBC in the next 1-2 days. Assessment and Plan: CHF with subjective increase in RLE edema -check BMP now -if stable, may give an extra dose of diuretics today -continue Bumex BID -start daily weights Thromboyctopenia - chronic -recheck CBC now -platelets have been trending down Psych -reviewed -possible dc tomorrow 1110 -CBC and BMP overall stable; mild hypernatremia; renal function preserved -give Lasix 20 mg PO x1 Sepsis Assessment - Evaluation Sepsis screening result: No Definite Risk Hospital Course Summary Disclaimer: The visit summary below is not to be considered part of the above Progress Note. Hospital Course: 10/25/16 16:26 . Schizophrenia with behavioral disturbance. * Agree with admission to [facility] unit for psychiatric evaluation and treatment. * Provide safe and supportive environment and encourage participation in floor activities. * Obtain admission work up including lipid panel, A1c, etc. Results pending. . NAEL. * Ativan and Cymbalta as directed by [facility] team. . COPD with oxygen dependence. * Continuous oxygen at 2-3L to maintain SAO2 >90%. . Diastolic heart failure. * Monitor closely for fluid overload. * Continue home bumex. . Hypertension and CAD with history of prior [place]. * Continue home medications including Losartan. * Monitor blood pressure closely. . DM Type 2. * Check A1c as part of admission workup. Results pending. * Carb controlled diet. * Monitor blood sugars in AM and HS. . IBS. * Continue home Bentyl. . Hyperlipidemia. * Continue home atorvastatin. . Morbid obesity. . Urge urinary incontinence. Upon discharge, patient's care will be returned to her PCP. 10/28/16 12:10 Hypernatremia -nursing staff were asked to encourage intake on 10/26/16 -recheck BMP today Thrombocytopenia -chronic -doesn't take ASA d/t thrombocytopenia -recheck CBC today COPD, O2 dependent -stable -cont BiPAP HS DM2 -pt denies hx -A1c was 5.6% -not on any meds CAD, HTN -stable Psych notes removed. 10/30/16 10:45 *Schizophrenia/SI/MDD- Continue supportive care. Safe environment. Per attending. *HTN/HFpEF- Continue diuresis, KCL replacement. Monitor fluid status- may need to decrease Bumex if dehydration remains an issue. Continue noc BiPAP support for LYLE/OHS. *Weakness/Gait instability- Wheelchair bound for many years. *LE pain- reports chronic pain. Continue APAP. Could consider adding Gabapentin low dose for PRN use if persists. *Constipation- Add miralax *Dehydration- repeat labs in AM 11/03/16 11:25 CBC reviewed from yesterday. Remains unremarkable. Last electrolytes from 619 were also normal. Nursing staff reports that patient is refusing Flomax and has asked for it to be discontinued. HTN & CHF continue with Bumex and Imdur Otherwise, patient appears medically stable. Continue to encourage patient to participate in unit activities and provide a safe environment Psychiatric care as per Dr. Bernal 11/04/16 18:05 11/04/16 Continue current care 11/05/16 11:37 Continue current care 11/06/16 12:44 Continue current care 11/07/16 09:52 CHF with subjective increase in RLE edema -check BMP now -if stable, may give an extra dose of diuretics today -continue Bumex BID -start daily weights Thromboyctopenia - chronic -recheck CBC now -platelets have been trending down Psych -reviewed -possible dc tomorrow 1110 -CBC and BMP overall stable; mild hypernatremia; renal function preserved -give Lasix 20 mg PO x1
--- NOTE | 2016-11-07 11:09 | Neuropsych Progress Note ---
[facility] Subjective Date: 11/07/16 - Sujective/Severity of Illness Medications: Acetaminophen (Tylenol) 1,000 mg PO Q4H PRN PRN Reason: Pain Last Admin: 11/07/16 01:00 Dose: 1,000 mg Acetaminophen (Tylenol) 325 - 650 mg PO Q5H PRN PRN Reason: Discomfort Last Admin: 11/05/16 15:03 Dose: 650 mg Amantadine HCl (Symmetrel) 100 mg PO BID [facility] Last Admin: 11/07/16 08:29 Dose: 100 mg Atorvastatin Calcium (Lipitor) 20 mg PO HS [facility] Last Admin: 11/07/16 02:40 Dose: Not Given Bumetanide (Bumex) 2 mg PO 0800,1200,1600 [facility] Last Admin: 11/07/16 08:28 Dose: 2 mg Clonazepam (Klonopin) 0.5 mg PO TID [facility] Last Admin: 11/07/16 08:29 Dose: 0.5 mg Cyanocobalamin (Vit B-12) 1,000 mcg PO DAILY [facility] Last Admin: 11/07/16 08:29 Dose: 1,000 mcg Dicyclomine HCl (Bentyl) 10 mg PO AC [facility] Last Admin: 11/07/16 05:54 Dose: 10 mg Duloxetine HCl (Cymbalta) 60 mg PO DAILY [facility] Last Admin: 11/07/16 08:29 Dose: 60 mg Haloperidol (Haldol) 0.5 mg PO Q6H PRN PRN Reason: Extreme agitation Haloperidol Lactate (Haldol) 0.5 mg IM Q6H PRN PRN Reason: Extreme agitation Hydrocortisone (Cortizone-10 Cream) 1 applic TOP BID PRN Last Admin: 11/05/16 15:37 Dose: 1 applic Isosorbide Mononitrate (Imdur) 60 mg PO ACBID [facility] Last Admin: 11/07/16 05:54 Dose: 60 mg Lactase (Lactaid Fast [place]) 1 tab PO WM [facility] Last Admin: 11/07/16 08:29 Dose: 1 tab Loperamide HCl (Imodium) 2 mg PO Q4H PRN PRN Reason: LOOSE STOOLS Loratadine (Claritin) 10 mg PO 0730 [facility] Last Admin: 11/07/16 08:28 Dose: 10 mg Lorazepam (Ativan Intensol) 0.5 mg SL Q6H PRN Last Admin: 11/07/16 00:59 Dose: 0.5 mg Lorazepam (Ativan Inj) 0.5 mg IM Q6H PRN PRN Reason: Extreme agitation Lorazepam (Ativan) 0.5 mg PO Q4H PRN PRN Reason: Anxiety Losartan Potassium (Cozaar) 100 mg PO DAILY [facility] Last Admin: 11/07/16 08:29 Dose: 100 mg Menthol (Ricola Sf) 1 lozenge MM Q2H PRN PRN Reason: Cough Polyethylene Glycol (Miralax) 17 gm PO DAILY PRN Potassium Chloride (K-Dur) 20 meq PO BIDWM [facility] Last Admin: 11/07/16 08:29 Dose: 20 meq Risperidone (Risperdal) 1 mg PO BID [facility] Risperidone (Risperdal Consta) 50 mg IM Q2WKS [facility]RICK Simethicone (Mylicon) 80 mg PO PRN PRN PRN Reason: Gas Sodium Chloride (Deep Sea Nasal Moisturizing [place]) 2 spray EA NOSTRIL PRN PRN PRN Reason: Congestion Subjective: Patient seen and chart examined. Nursing reports that patient was only able to sleep for about 4.5 hours last night and she continues to be irritable both at night and during the day. Patient has quite restricted affect this morning and expresses ambivalence regarding discharge. Even though she denies auditory and visual hallucination, she appears to look overtly suspicious. She denies SI/HI and tolerating medications without side effect. There is no acute or chronic EPS. Patient is due to receive IM Risperidone Consta today Start Time: 09:40 Stop Time: 10:00 Mental Status Exam Vitals: Last Vital Signs Temp 97.6 F 11/07/16 08:00 Pulse 83 11/07/16 08:00 Resp 16 11/07/16 08:00 BP 138/65 11/07/16 08:00 Pulse Ox 97 11/07/16 08:00 Height: 1.65 m Weight: 136.6 kg - Mental Status Exam Muscle Strength/Tone: Normal Dressing: Casual Grooming: Good Attitude: Suspicious Motor Activity: Normal Eye Contact: Good Speech: Slowed Volume: Normal Rhythm: Appropriate Rhythm Orientation: Oriented X4 Mood: Anxious Affect: Hostile (at times) Rate of Thoughts: Appropriate Rate Thought Organization: Organized Associations: Intact Abstract Reasoning: Poor abstract reasoning Thought Content: Normal Perception/Psychotic: Hx psychosis, not current Language: Naming Intact Fund of Knowledge: Basil aware current events Memory: Grossly Intact Suicidal Ideation: Denies Homicidal Ideation: Denies Insight: Fair Judgement: Fair Impulse Control: Poor - Laboratory Result Diagrams: 11/07/16 10:50 10/31/16 04:52 Laboratory Results - last 24 hr 11/07/16 10:50 WBC 7.9 RBC 4.46 Hgb 12.5 Hct 39.2 MCV 87.9 MCH 28.0 MCHC 31.9 RDW Std Deviation 42.7 Plt Count 89 L MPV 10.5 Immature Gran % (Auto) 0.6 H Neut % (Auto) 78.6 H Lymph % (Auto) 14.8 L [place] % (Auto) 4.4 Eos % (Auto) 1.1 Baso % (Auto) 0.5 Neut # 6.2 Lymph # 1.2 [place] # 0.4 Eos # 0.1 Baso # 0.0 Abs Immat Gran (auto) 0.05 H Assessment and Plan (1) Schizophrenia Problem details: by history Current visit: Yes Status: Chronic (2) CAD (coronary artery disease) Current visit: Yes Status: Chronic (3) COPD (chronic obstructive pulmonary disease) Current visit: Yes Status: Chronic (4) Generalized anxiety disorder Problem details: by history Current visit: Yes Status: Chronic (5) Hyperlipidemia Current visit: Yes Status: Chronic (6) Hypertension Current visit: Yes Status: Chronic Increase Risperidone to 1mg BID. Patient to receive IM Risperidone Consta 50mg IM stat. Hold discharge Hospital Course Summary Disclaimer: The visit summary below is not to be considered part of the above Progress Note. Hospital Course: 10/25/16 16:26 . Schizophrenia with behavioral disturbance. * Agree with admission to [facility] unit for psychiatric evaluation and treatment. * Provide safe and supportive environment and encourage participation in floor activities. * Obtain admission work up including lipid panel, A1c, etc. Results pending. . NAEL. * Ativan and Cymbalta as directed by [facility] team. . COPD with oxygen dependence. * Continuous oxygen at 2-3L to maintain SAO2 >90%. . Diastolic heart failure. * Monitor closely for fluid overload. * Continue home bumex. . Hypertension and CAD with history of prior [place]. * Continue home medications including Losartan. * Monitor blood pressure closely. . DM Type 2. * Check A1c as part of admission workup. Results pending. * Carb controlled diet. * Monitor blood sugars in AM and HS. . IBS. * Continue home Bentyl. . Hyperlipidemia. * Continue home atorvastatin. . Morbid obesity. . Urge urinary incontinence. Upon discharge, patient's care will be returned to her PCP. 10/28/16 12:10 Hypernatremia -nursing staff were asked to encourage intake on 10/26/16 -recheck BMP today Thrombocytopenia -chronic -doesn't take ASA d/t thrombocytopenia -recheck CBC today COPD, O2 dependent -stable -cont BiPAP HS DM2 -pt denies hx -A1c was 5.6% -not on any meds CAD, HTN -stable Psych notes removed. 10/30/16 10:45 *Schizophrenia/SI/MDD- Continue supportive care. Safe environment. Per attending. *HTN/HFpEF- Continue diuresis, KCL replacement. Monitor fluid status- may need to decrease Bumex if dehydration remains an issue. Continue noc BiPAP support for LYLE/OHS. *Weakness/Gait instability- Wheelchair bound for many years. *LE pain- reports chronic pain. Continue APAP. Could consider adding Gabapentin low dose for PRN use if persists. *Constipation- Add miralax *Dehydration- repeat labs in AM 11/03/16 11:25 CBC reviewed from yesterday. Remains unremarkable. Last electrolytes from 619 were also normal. Nursing staff reports that patient is refusing Flomax and has asked for it to be discontinued. HTN & CHF continue with Bumex and Imdur Otherwise, patient appears medically stable. Continue to encourage patient to participate in unit activities and provide a safe environment Psychiatric care as per Dr. Bernal 11/04/16 18:05 11/04/16 Continue current care 11/05/16 11:37 Continue current care 11/06/16 12:44 Continue current care 11/07/16 09:52 CHF with subjective increase in RLE edema -check BMP now -if stable, may give an extra dose of Bumex today -continue Bumex BID -start daily weights Thromboyctopenia - chronic -recheck CBC now -platelets have been trending down Psych -reviewed -possible dc tomorrow
[2016-11-07] MEDS ORDERED: FUROSEMIDE 20 MG TABLET PO ONE (11:12)
[2016-11-07] MEDS ORDERED: RISPERIDONE IM SCH (12:15)
[2016-11-08] MEDS: DICYCLOMINE 10mg CAPSULE PO SCH ×3 (07:50→16:54)
[2016-11-08] MEDS: ISOSORBIDE MONONITRATE ER 60 MG TABLET PO SCH ×2 (07:50→16:55)
[2016-11-08] MEDS: LACTAID FAST TABLET PO SCH ×3 (07:51→16:56)
[2016-11-08] MEDS: DULOXETINE 60 MG CAPSULE PO SCH ×2 (07:51→12:19)
[2016-11-08] MEDS: LOSARTAN 100 MG TABLET PO SCH ×2 (07:51→12:18)
[2016-11-08] MEDS: LORATADINE 10 MG TABLET PO SCH (07:51)
[2016-11-08] MEDS: BUMETANIDE 1 MG TABLET PO SCH ×3 (07:51→16:54)
[2016-11-08] MEDS: AMANTADINE 100 MG CAPSULE PO SCH ×3 (07:52→20:19)
[2016-11-08] MEDS: ClonazePAM 0.5 MG TABLET PO SCH ×4 (07:52→20:19)
[2016-11-08] MEDS: RisperiDONE 1 MG TABLET PO SCH ×3 (07:52→20:19)
[2016-11-08] MEDS: CYANOCOBALAMIN (B-12) 500mcg TABLET PO SCH ×2 (07:53→12:20)
--- NOTE | 2016-11-08 16:35 | Discharge Summary ---
Discharge Plan - Med Rec/Dispo Referrals/Follow Up: Deana Napoles [Other] (Dr. Faisal Napoles will see patient on rounds at the facility for Hosp. follow-up. .) Angelica Saunders APRN [Other] (Angelica Saunders APRN will see patient on rounds at the facility for Mental Health follow-up. Patient to be seen once a month for Mental Health Theraphy.) Additional Instructions: Reasons for Admission: Discharge Diagnosis: IN CASE OF PSYCHIATRIC EMERGENCY, CONTACT [facility] STAFF AT [phone] ( available 24 hrs daily). Prescriptions: New Duloxetine [Cymbalta] 60 mg PO DAILY capsule PEG 3350 17gm PACKET [Miralax] 17 gm PO DAILY PRN packet PRN Reason: Constipation /Stool Softening RisperiDONE [RisperDAL] 1 mg PO BID tablet Cyanocobalamin (B-12) [Vit. B-12] 1,000 mcg PO DAILY tablet Losartan [Cozaar] 100 mg PO DAILY tablet Continue Atorvastatin Calcium 20 mg PO HS [place] 7 mg PO Q2H PRN PRN Reason: Cough Dicyclomine HCl 10 mg PO TID Losartan [Cozaar] 100 mg PO DAILY Isosorbide Mononitrate ER [Imdur] 60 mg PO BID ClonazePAM [Klonopin] 0.5 mg PO TID RisperiDONE [place] [RisperDAL Consta] 50 mg IM Q2WKS LORazepam [Ativan] 0.5 mg PO Q4H PRN PRN Reason: Anxiety Amantadine HCl [Amantadine] 100 mg PO BID Loperamide HCl [Loperamide] 2 mg PO Lactase [Dairy Relief] 3,000 unit PO Pseudoephedrine HCl [Sudafed] 30 mg PO BID PRN PRN Reason: Allergy Symptoms Sodium Chloride [Saline Nasal Mist] 2 spray NS PRN PRN PRN Reason: Congestion Simethicone [Mylicon] 80 mg PO PRN PRN PRN Reason: Gas Baclofen [Lioresal] 5 mg PO Q8H PRN PRN Reason: Spasms Nitroglycerin 0.4 mg SL Acetaminophen [Acetaminophen Extra Strength] 1,000 mg PO Q4H PRN PRN Reason: Pain Loratadine [Claritin] 10 mg PO DAILY Bumetanide Tab [Bumex] 2 mg PO TID Potassium Chloride [Klor-Con] 20 meq Discontinued LORazepam [Ativan] 0.5 mg PO DAILY PRN PRN Reason: Anxiety Ondansetron [Zofran Odt] 4 mg PO Q6HR PRN PRN Reason: Nausea &/Or Vomiting Duloxetine HCl 30 mg PO BID Melatonin/Pyridoxine HCl (B6) [Melatonin 3 mg Tablet] 6 mg PO HS PRN PRN Reason: Sleep No Action Tamsulosin HCl 0.4 mg PO HS - Disposition 04 To [facility] Home/Facility
--- NOTE | 2016-11-08 16:37 | Extended Care Facility Orders ---
Admission Orders Admit to:: [facility] Allergies/Adverse Reactions: Allergies codeine Allergy (Verified 10/24/16 16:27) cortisone Allergy (Verified 10/24/16 16:27) No Known Adverse Drug Reactions Adverse Reaction (Verified 10/28/16 13:18) Admitting Diagnosis: MDD Moderate Recurrent Episode Schizophrenia Admitting Physician: Anne-Marie Landaverde MD Attending Physician: Anne-Marie Landaverde MD Code Status: Full Code Anticiapted Length of Stay: greater than 30 days Rehab Potential: fair Rehab Prognosis: fair Diet: 10/24/16 Dinner Regular Diet [DIET] Diet Modifications: [facility] Certification: I certify that SNF services are required to be given on an Inpatient basis because of the patients need for jail care on a continuing basis for the condition(s) for which he/she received inpatient hospital services prior to his/her transfer to the SNF. SNF inpatient care is necessary for the following reasons - Additional Information Referrals: Deana Napoles [Other] (Dr. Faisal Napoles will see patient on rounds at the facility for Hosp. follow-up. .) Angelica Saunders APRN [Other] (Angelica Saunders APRN will see patient on rounds at the facility for Mental Health follow-up. Patient to be seen once a month for Mental Health Theraphy.)
--- NOTE | 2016-11-08 19:13 | Neuropsych Progress Note ---
[facility] Subjective Date: 11/08/16 - Sujective/Severity of Illness Medications: Acetaminophen (Tylenol) 1,000 mg PO Q4H PRN PRN Reason: Pain Last Admin: 11/07/16 18:55 Dose: 1,000 mg Acetaminophen (Tylenol) 325 - 650 mg PO Q5H PRN PRN Reason: Discomfort Last Admin: 11/05/16 15:03 Dose: 650 mg Amantadine HCl (Symmetrel) 100 mg PO BID [facility] Last Admin: 11/08/16 12:19 Dose: Not Given Atorvastatin Calcium (Lipitor) 20 mg PO HS [facility] Last Admin: 11/07/16 22:01 Dose: Not Given Bumetanide (Bumex) 2 mg PO 0800,1200,1600 [facility] Last Admin: 11/08/16 16:54 Dose: 2 mg Clonazepam (Klonopin) 0.5 mg PO TID [facility] Last Admin: 11/08/16 15:58 Dose: 0.5 mg Cyanocobalamin (Vit B-12) 1,000 mcg PO DAILY [facility] Last Admin: 11/08/16 12:20 Dose: Not Given Dicyclomine HCl (Bentyl) 10 mg PO AC [facility] Last Admin: 11/08/16 16:54 Dose: 10 mg Duloxetine HCl (Cymbalta) 60 mg PO DAILY [facility] Last Admin: 11/08/16 12:19 Dose: Not Given Haloperidol (Haldol) 0.5 mg PO Q6H PRN PRN Reason: Extreme agitation Haloperidol Lactate (Haldol) 0.5 mg IM Q6H PRN PRN Reason: Extreme agitation Hydrocortisone (Cortizone-10 Cream) 1 applic TOP BID PRN Last Admin: 11/05/16 15:37 Dose: 1 applic Isosorbide Mononitrate (Imdur) 60 mg PO ACBID [facility] Last Admin: 11/08/16 16:55 Dose: 60 mg Lactase (Lactaid Fast Act) 1 tab PO WM [facility] Last Admin: 11/08/16 16:56 Dose: 1 tab Loperamide HCl (Imodium) 2 mg PO Q4H PRN PRN Reason: LOOSE STOOLS Loratadine (Claritin) 10 mg PO 0730 [facility] Last Admin: 11/08/16 07:51 Dose: 10 mg Lorazepam (Ativan Intensol) 0.5 mg SL Q6H PRN Last Admin: 11/07/16 00:59 Dose: 0.5 mg Lorazepam (Ativan Inj) 0.5 mg IM Q6H PRN PRN Reason: Extreme agitation Lorazepam (Ativan) 0.5 mg PO Q4H PRN PRN Reason: Anxiety Losartan Potassium (Cozaar) 100 mg PO DAILY [facility] Last Admin: 11/08/16 12:18 Dose: Not Given Menthol (Ricola Sf) 1 lozenge MM Q2H PRN PRN Reason: Cough Polyethylene Glycol (Miralax) 17 gm PO DAILY PRN Potassium Chloride (K-Dur) 20 meq PO BIDWM [facility] Last Admin: 11/08/16 16:55 Dose: 20 meq Risperidone (Risperdal) 1 mg PO BID [facility] Last Admin: 11/08/16 12:19 Dose: Not Given Risperidone (Risperdal Consta) 50 mg IM Q2WKS [facility] Last Admin: 11/08/16 12:51 Dose: 50 mg Simethicone (Mylicon) 80 mg PO PRN PRN PRN Reason: Gas Sodium Chloride (Deep Sea Nasal Moisturizing [place]) 2 spray EA NOSTRIL PRN PRN PRN Reason: Congestion Subjective: Patient seen and chart examined. Nursing reports that patient was able to sleep for about 6.5 hours last night and she appears to be in good sprit and feels ready for discharge. She denies any depression and denies SI, intent or plans to hurt herself or some other person. She received Risperidone Consta 50mg IM this morning and tolerated it without any side effect. She denies any auditory or visual hallucinations. There is no acute or chronic EPS. Start Time: 15:00 Stop Time: 15:20 Care: >50% of this visit spent in counseling/coordination care. Mental Status Exam Vitals: Last Vital Signs Temp 97.4 F 11/08/16 16:00 Pulse 87 11/08/16 16:00 Resp 16 11/08/16 16:00 BP 117/65 11/08/16 16:00 Pulse Ox 96 11/08/16 16:00 Height: 1.65 m Weight: 82.7 kg - Mental Status Exam Muscle Strength/Tone: Normal Dressing: Casual Grooming: Good Attitude: Suspicious Motor Activity: Normal Eye Contact: Good Speech: Slowed Volume: Normal Rhythm: Appropriate Rhythm Orientation: Oriented X4 Mood: Neutral Affect: Flat Rate of Thoughts: Appropriate Rate Thought Organization: Organized Associations: Intact Abstract Reasoning: Poor abstract reasoning Thought Content: Normal Perception/Psychotic: Hx psychosis, not current Language: Naming Intact Fund of Knowledge: Basil aware current events Memory: Grossly Intact Suicidal Ideation: Denies Homicidal Ideation: Denies Insight: Fair Judgement: Fair Impulse Control: Poor - Laboratory Result Diagrams: 11/07/16 10:50 11/07/16 10:50 Assessment and Plan (1) Schizophrenia Problem details: by history Current visit: Yes Status: Chronic (2) CAD (coronary artery disease) Current visit: Yes Status: Chronic (3) COPD (chronic obstructive pulmonary disease) Current visit: Yes Status: Chronic (4) Diabetes Current visit: Yes Status: Chronic (5) Diastolic heart failure Current visit: Yes Status: Chronic (6) Generalized anxiety disorder Problem details: by history Current visit: Yes Status: Chronic (7) Hyperlipidemia Current visit: Yes Status: Chronic Discharge patient tomorrow 11/09/16. Hospital Course Summary Disclaimer: The visit summary below is not to be considered part of the above Progress Note. Hospital Course: 10/25/16 16:26 . Schizophrenia with behavioral disturbance. * Agree with admission to [facility] for psychiatric evaluation and treatment. * Provide safe and supportive environment and encourage participation in floor activities. * Obtain admission work up including lipid panel, A1c, etc. Results pending. . NAEL. * Ativan and Cymbalta as directed by [facility] team. . COPD with oxygen dependence. * Continuous oxygen at 2-3L to maintain SAO2 >90%. . Diastolic heart failure. * Monitor closely for fluid overload. * Continue home bumex. . Hypertension and CAD with history of prior NM. * Continue home medications including Losartan. * Monitor blood pressure closely. . DM Type 2. * Check A1c as part of admission workup. Results pending. * Carb controlled diet. * Monitor blood sugars in AM and HS. . IBS. * Continue home Bentyl. . Hyperlipidemia. * Continue home atorvastatin. . Morbid obesity. . Urge urinary incontinence. Upon discharge, patient's care will be returned to her PCP. 10/28/16 12:10 Hypernatremia -nursing staff were asked to encourage intake on 10/26/16 -recheck BMP today Thrombocytopenia -chronic -doesn't take ASA d/t thrombocytopenia -recheck CBC today COPD, O2 dependent -stable -cont BiPAP HS DM2 -pt denies hx -A1c was 5.6% -not on any meds CAD, HTN -stable Psych notes removed. 10/30/16 10:45 *Schizophrenia/SI/MDD- Continue supportive care. Safe environment. Per attending. *HTN/HFpEF- Continue diuresis, KCL replacement. Monitor fluid status- may need to decrease Bumex if dehydration remains an issue. Continue noc BiPAP support for LYLE/OHS. *Weakness/Gait instability- Wheelchair bound for many years. *LE pain- reports chronic pain. Continue APAP. Could consider adding Gabapentin low dose for PRN use if persists. *Constipation- Add miralax *Dehydration- repeat labs in AM 11/03/16 11:25 CBC reviewed from yesterday. Remains unremarkable. Last electrolytes from 619 were also normal. Nursing staff reports that patient is refusing Flomax and has asked for it to be discontinued. HTN & CHF continue with Bumex and Imdur Otherwise, patient appears medically stable. Continue to encourage patient to participate in unit activities and provide a safe environment Psychiatric care as per Dr. Bernal 11/04/16 18:05 11/04/16 Continue current care 11/05/16 11:37 Continue current care 11/06/16 12:44 Continue current care 11/07/16 09:52 CHF with subjective increase in RLE edema -check BMP now -if stable, may give an extra dose of diuretics today -continue Bumex BID -start daily weights Thromboyctopenia - chronic -recheck CBC now -platelets have been trending down Psych -reviewed -possible dc tomorrow 1110 -CBC and BMP overall stable; mild hypernatremia; renal function preserved -give Lasix 20 mg PO x1
[2016-11-08] MEDS: ATORVASTATIN 20 MG TABLET PO SCH (21:35)
[2016-11-09] MEDS: ISOSORBIDE MONONITRATE ER 60 MG TABLET PO SCH (05:39)
[2016-11-09] MEDS: DICYCLOMINE 10mg CAPSULE PO SCH (05:39)
[2016-11-09] MEDS: LORATADINE 10 MG TABLET PO SCH (07:55)
[2016-11-09] MEDS: BUMETANIDE 1 MG TABLET PO SCH (07:55)
[2016-11-09] MEDS: LACTAID FAST TABLET PO SCH (07:56)
[2016-11-09] MEDS: ClonazePAM 0.5 MG TABLET PO SCH (08:00)
[2016-11-09] MEDS: AMANTADINE 100 MG CAPSULE PO SCH (08:00)
[2016-11-09] MEDS: DULOXETINE 60 MG CAPSULE PO SCH (08:00)
[2016-11-09] MEDS: LOSARTAN 100 MG TABLET PO SCH (08:00)
[2016-11-09] MEDS: RisperiDONE 1 MG TABLET PO SCH (08:00)
[2016-11-09] MEDS: CYANOCOBALAMIN (B-12) 500mcg TABLET PO SCH (08:01)
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
== END 2016-11-09 10:45 | DRG 885 ==
LOC: GEN 14:52
PROVIDERS: ADMIT Psychiatry & Neurology Psychiatry; ATTEND Psychiatry & Neurology Psychiatry